=== PATIENT | female | born 1980 | race Caucasian/White ===

== ENCOUNTER → 2017-06-24 08:09 | Outpatient (CLI) | payer OTHER, SELFPAY ==
[2017-06-24 10:54] LABS: Alanine Aminotransferase 66 U/L (12-78); Albumin Level 3.9 gm/dL (3.4-5.0); Albumin/Globulin Ratio 1.1 (1.1-1.8); Alkaline Phosphatase 94 U/L (46-116); Anion Gap 15.8 mEq/L (5-15); Aspartate Amino Transferase 46 U/L (15-37); Bilirubin,Total 0.3 mg/dL (0.2-1.0); Blood Urea Nitrogen 13 mg/dL (7-18); Calcium 9.6 mg/dL (8.5-10.1); Carbon Dioxide 26 mmol/L (21.0-32.0); Chloride 104 mmol/L (98-107); Creatinine,Serum 0.94 mg/dL (0.55-1.02); Estimated Glomerular Filt Rate 67 ml/min (>60); GFR (African American) 82 ML/MIN (>60); Globulin 3.6 gm/dl (1.3-3.2); Glucose 99 mg/dL (74-106); Potassium 4.8 mmoL/L (3.5-5.1); Sodium 141 mmol/L (136-145); Total Protein,Serum 7.5 gm/dL (6.4-8.2)
[2017-06-24 11:04] LABS: Thyroid Stimulating Hormone 3.46 uIU/ml (0.358-3.740)
[2017-06-26 12:54] LABS: Prolactin 12.8 ng/mL (4.8-23.3)
== END ==
PROVIDERS: Nurse Practitioner Family; Visit Provider Physician Assistant
DX: E03.9 Hypothyroidism, unspecified (principal); G47.10 Hypersomnia, unspecified; Z13.1 Encounter for screening for diabetes mellitus
CPT/HCPCS: 36415; 80053; 83036; 84146; 84443

== ENCOUNTER → 2017-06-30 20:12 | Outpatient (CLI) | payer OTHER, SELFPAY | PROVIDERS: PCP Family Medicine; Visit Provider Nurse Practitioner Family | DX: G47.10 Hypersomnia, unspecified (principal); R06.83 Snoring; R51 Headache; R41.3 Other amnesia; E66.9 Obesity, unspecified | CPT/HCPCS: 95810 ==

== ENCOUNTER → 2018-09-08 17:05 | Outpatient (CLI) | payer OTHER, SELFPAY ==
--- NOTE | 2018-09-08 17:14 | XR_ITS ---
XR shoulder LT min 2V HISTORY: ITS.REASON: LT SHOULDER PAIN X 2 WEEKS ORDERING PHYSICIAN: ANDREW Sanchez PATIENT AGE: 38 years Comparison: None FINDINGS: No fracture or dislocation. No lytic or blastic change. There is normal mineralization. The joint spaces are well-preserved. No significant degenerative/arthritic changes. No erosive changes evident. IMPRESSION: Negative, no acute finding
== END ==
PROVIDERS: PCP Family Medicine; Visit Provider Physician Assistant
DX: M25.512 Pain in left shoulder (principal)
CPT/HCPCS: 73030

== ENCOUNTER → 2019-07-12 09:07 | Outpatient (CLI) | payer OTHER, SELFPAY ==
--- NOTE | 2019-07-12 09:53 | ECG_ITS ---
APPROVED REPORT Exam: Resting ECG HR:66 bpm ECG Measurements Heart Rate 66 AXES MI 130 P 16 QRSd 74 QRS 25 QT 410 T 50 QTc 429 <Conclusion> Normal sinus rhythm Normal ECG Electronically signed by : Diony Liang, 07/13/2019 06:33:36
[2019-07-12 10:19] LABS: Basophils % 0.5 % (0.1-2.0); Eosinophils # 0.1 K/mm3 (0.0-0.4); Eosinophils % 2.7 % (0.1-12.0); Hemoglobin 12.8 g/dL (12.2-16.2); Lymphocytes # 1.6 K/mm3 (0.7-4.5); Lymphocytes % 30.1 % (10-50); Mean Corpuscular HGB Conc 32.1 g/dL (31.8-35.4); Mean Corpuscular Hemoglobin 30.3 pg (27.0-31.2); Mean Corpuscular Volume 94.4 fl (81-99); Mean Platelet Volume 7.7 fl (7.4-10.4); Monocytes # 0.3 K/mm3 (0.1-1.0); Monocytes % 4.8 % (1.7-9.3); Neutrophils # 3.3 K/mm3 (1.8-7.8); Neutrophils % 61.9 % (37.0-80.0); Platelet Count 321 K/mm3 (142-424); Red Blood Count 4.24 M/mm3 (4.20-5.40); Red Cell Distribution Width 13.1 % (11.5-17.5); White Blood Count 5.4 K/mm3 (4.8-10.8)
[2019-07-12 10:56] LABS: Chloride 99 mmol/L (98-107)
[2019-07-12 10:57] LABS: Potassium 4.5 mmoL/L (3.5-5.1); Sodium 136 mmol/L (136-145)
[2019-07-12 10:59] LABS: Alanine Aminotransferase 18 U/L (12-78); Alkaline Phosphatase 69 U/L (38-126); Aspartate Amino Transferase 23 U/L (14-36); Bilirubin,Total 0.3 mg/dl (0.2-1.3); Blood Urea Nitrogen 15 mg/dl (7-17); Estimated Glomerular Filt Rate 70 ml/min (>60); GFR (African American) 85 ML/MIN (>60)
[2019-07-12 11:00] LABS: Albumin Level 4.6 g/dl (3.5-5.0); Albumin/Globulin Ratio 1.6 (1.1-1.8); Anion Gap 12.5 mEq/L (5-15); Calcium 10.2 mg/dl (8.4-10.2); Carbon Dioxide 29 mmol/L (22.0-30.0); Globulin 2.8 g/dL (1.3-3.2); Glucose 106 mg/dl (74-100); Total Protein,Serum 7.4 g/dl (6.3-8.2)
== END ==
PROVIDERS: PCP Family Medicine; Visit Provider Orthopaedic Surgery
DX: Z01.818 Encounter for other preprocedural examination (principal); M25.512 Pain in left shoulder
CPT/HCPCS: 36415; 80053; 85025; 93005

== ENCOUNTER → 2019-07-19 09:18 | Outpatient (CLI) | payer OTHER, SELFPAY ==
[2019-07-20 16:09] LABS: Covid-19 Nasal PCR Sendout Lex NOT DETECTED
== END ==
PROVIDERS: Visit Provider Orthopaedic Surgery
DX: Z03.818 Encounter for observation for suspected exposure to other biological agents ruled out (principal)
CPT/HCPCS: U0004

== ENCOUNTER → 2019-07-25 09:43 | Outpatient (CLI) | payer OTHER, SELFPAY ==
[2019-07-25 11:36] LABS: Coronavirus 19 IgG Antibody Negative (Negative); Coronavirus 19 IgM Antibody Negative (Negative)
== END ==
PROVIDERS: Visit Provider Orthopaedic Surgery
DX: Z03.818 Encounter for observation for suspected exposure to other biological agents ruled out (principal)
CPT/HCPCS: 36415; 86328

== ENCOUNTER 2019-07-26 10:01 | Day surgery (SDC) | payer OTHER, SELFPAY ==
--- NOTE | 2019-07-18 10:31 | SUR.PREOP ---
07/18/2019 @ 6780--PHONE CALL MADE TO PATIENT. PATIENT UNDERSTANDS THAT LAB WORK AND COVID TESTING NEEDS TO BE COMPLETED BEFORE 10 AM ON 07/19/2019. PATIENT UNDERSTANDS IF LAB WORK AND COVID-19 TESTS ARE NOT COMPLETED BY 12PM ON THAT DATE, THE SURGERY SCHEDULED WILL BE CANCELLED AND RESCHEDULED FOR ANOTHER TIME.
[2019-07-20 09:52] VITALS: BMI 31.4
--- NOTE | 2019-07-21 11:25 | SUR.PREOP ---
07/21/2019 @ 1125--PHONE CALL MADE TO PATIENT. PATIENT UNDERSTANDS THAT LAB WORK AND COVID TESTING NEEDS TO BE COMPLETED BY 10 AM ON 07/25/2019. PATIENT UNDERSTANDS IF LAB WORK AND COVID-19 TESTS ARE NOT COMPLETED BY 12PM ON THAT DATE, THE SURGERY SCHEDULED WILL BE CANCELLED AND RESCHEDULED FOR ANOTHER TIME.
[2019-07-26] VITALS (9 sets, daily range): BP systolic 102–124; BP diastolic 59–82; PULSE 82–100; RESP 12–18; TEMP 36.4–43; O2SAT 95–100
[2019-07-26 10:55] LABS: Urine Pregnancy, HCG Qual. Negative (Negative)
--- NOTE | 2019-07-26 11:31 | HMH.ANESCL ---
[facility] Anesthesia Checklist - Structural Data Admitted From: Home Planned Operative Procedure/s: shoulder arthro Consent for Planned Operative Procedure(s) Verified: Yes - Additional verifications Anesthesia Reactions: No Hx Blood Transfusions: No - Airway Assessment C-Spine Mobility Assessed: Yes TMJ Mobility Assessed: Yes Dentition: Good Dentition - Neurological Assessment Level of Consciousness: Awake, Alert, Appropriate - Anesthesia Plan Anesthesia Risk discussed: Yes Anesthesia Plan: Verified ASA Class: II Anesthesia Type: General w/block [facility] History I have reviewed the patient's past medical history: Yes (discussed BP block w pt,pt agrees to proceed) Medical History: Reports:: Anxiety, Depression, Gastroesophageal Reflux Disease(GERD) Denies:: Cancer, Diabetes Mellitus Type 1, Diabetes Mellitus Type 2, Internal Pacemaker, MRSA, Seizures *Have you ever received a pneumonia vaccine?: No *Have you received a flu vaccine this season?: Yes Other Medical History: Reports: Fibromyalgia, Thyroid Disease, Other Anesthesia experience/problems:: none Laterality Cases: Left: ACL Repair Other Surgeries: Yes: No Previous Surgery, Cholecystectomy, Colonoscopy, Other. No: Pacemaker Amputation: No Fractures: No - *Social History Educational Level: Completed College Smoking Status: Never smoker Tobacco Type: cigarettes, smokeless tobacco # Packs/Day (cigarettes): 1 #Yrs smoked (if former smoker): 1 Alcohol Intake: current Alcohol Intake Frequency:: holidays/special occasions only Substance Use Type: denies use *Occupational Status:: employed Housing: house Household Members: spouse *Travel in the last 8 weeks: None - Psychiatric History Pschychiatric History:: Reports:: Anxiety, Depression Family Hx:: Coronary Artery Disease, Hyperlipidemia, Hypertension
--- NOTE | 2019-07-26 14:57 | SUR.OPER ---
1405-family updated at this time
--- NOTE | 2019-07-26 15:34 | SUR.OPER ---
1534-family updated at this time
--- NOTE | 2019-07-26 17:19 | P.PN_ITS ---
[facility] Anesthesia Record Part I Intake, IV Amount: 2,900 Estimated blood loss (mL): 0 Urine output (mL): 400 Blood Pressure: 102/60 SaO2: 95 Pulse Rate: 100 Respiratory Rate: 12 Temperature: 97.6 F Patient is:: Awake, Stable (no co pain at this time) Stable to PACU at:: 17:10
--- NOTE | 2019-07-26 17:35 | HMH.OPNOTE ---
Date of procedure: 07/26/19 Pre-op Diagnosis:: L shoulder posterior labral tear, SLAP tear, paralabral cyst Post-op Diagnosis:: L shoulder posterior labral tear, SLAP tear, paralabral cyst, biceps tendinopathy Procedure performed:: L shoulder arthroscopy, biceps tenotomy, decompression of paralabral cyst, labral repair Surgeon:: Sona Michelle MD Wood Caulker(s):: PARVIZ Pedroza MOWER OPERATOR:: Jose Musa Anesthesia: GETA, regional (interscalene block) Estimated blood loss (mL): 10 Clinical Note:: 39-year-old [id number] female with pain in left shoulder present for over 1 year, with no known injury. Pain is localized to the left shoulder; no neck pain, no pain that radiates down the left upper extremity, no numbness or tingling. She has been seen by a PA at another facility who initiated treatment with physical therapy and a corticosteroid injection. She underwent 3 to 4 months of physical therapy, combined with ibuprofen and a steroid injection given in March 2019, but the shot has since worn off and her pain returned as significantly as ever. MRI of the left shoulder without contrast was done in [place] on October 01, 2018 and revealed a posterior labral tear, likely SLAP tear with large paralabral cyst impinging on suprascapular/spinoglenoid notches. I recommended surgical treatment given failure of 1 year of conservative therapy. My proposed plan was for L shoulder arthroscopy, decompression of paralabral cyst, labral repair, possible SLAP repair, possible biceps tenotomy vs tenodesis. I discussed the risks of surgery with the patient, including bleeding, infection, neurovascular damage, traction neuropraxia is positioned laterally, persistent pain/weakness despite surgery, and need for further surgery in the future. The patient vocalized understanding of the risks and has elected to proceed with surgery; all questions were answered. Operative findings:: labral tear: posterior from 9-11 o'clock SLAP tear at 12 o'clock, type III-IV anterior labral tear at 1-3 o'clock, possible sublabral foramen biceps tendon with intrasubstance longitudinal tearing + erythema c/w tendinopathy Anchors used: Arthrex Fibertak labral repair anchors, knotless 2.6mm x5 + 1.8mm x1 camera malfunction during case: pictures were thought have been taken but images were not captured starting midway through procedure Operative note:: The patient was identified in preoperative holding and the left shoulder signed by myself. Consent was verified with the patient and all questions answered. She was then seen by anesthesia and interscalene nerve block administered. The patient was then transported to the operating room where she was placed supine on the OR table. 2 g of Ancef were infused intravenously and general anesthesia induced, The patient was placed in the beachchair position with the head in a well-padded chavez in neutral position and all bony prominences well-padded. The left shoulder was then prepped and draped in the usual sterile fashion for shoulder arthroscopy. Timeout was performed, identifying the correct patient, correct procedure, correct site. The procedure was begun by using a marking pen to drawout anatomic landmarks for reference, in addition to the location of all desired portals. Using an 11 blade, a standard posterior viewing portal was established. 30 degree arthroscope was placed into the glenohumeral joint. The biceps tendon was seen, and while visualizing the anterior joint capsule, an anterior working portal was established using a spinal needle and an outside-in technique. Through this portal a 7mm threaded plastic working cannula was inserted, into the joint. From here a diagnostic arthroscopy was performed. A SLAP tear was immediately seen, most resembling a type III-IV. There was extension of the tear posteriorly to around 9 o'clock. There was what appeared to be a sublabral foramen anteriorly, with milder but still
--- NOTE | 2019-07-26 17:57 | PC.NURSE ---
173-detailed report given to TATA Hoffman 174-pt transported to post op via stretcher w/clayton rails up and left in care of TATA Hoffman, vss, pt stable
--- NOTE | 2019-07-27 08:54 | HMH.ANESII ---
[facility] Anesthesia Record Part II Discharge Time: 17:40 Destination: [facility] PACU nurse assessment reviewed?: Yes Patient Condition:: Good Anesthesia Complications:: None Swallowing reflex intact?: Yes Cyanosis?: No Blood Pressure: 110/59 Pulse Rate: 86 Temperature: 97.8 F Mental Status: Alert & Oriented Pain level:: 5 Nausea and/or vomitting:: None Intake, IV Amount: 2,900
[2019-07-27 08:55] VITALS: BP 110/59; PULSE 86; TEMP 36.6
== END 2019-07-26 18:11 | disposition home or self-care (01) ==
LOC: OR 10:02
PROVIDERS: PCP Family Medicine; Visit Provider Orthopaedic Surgery
PROC: (CPT 29805; principal; 2019-07-26 11:30)
DX: S43.432A Superior glenoid labrum lesion of left shoulder, initial encounter (principal); M75.22 Bicipital tendinitis, left shoulder
CPT/HCPCS: 29828; 29807; 81025; C1713; J2405

== ENCOUNTER → 2019-10-28 08:51 | Outpatient (CLI) | payer OTHER, SELFPAY ==
--- NOTE | 2019-10-28 08:55 | XR_ITS ---
PROCEDURE: XR SHOULDER LT MIN 2V CLINICAL INDICATION: sp LT shoulder surgery, sx 07/26/2019 Follow-up surgery COMPARISON: CR Shoulder L from 09/08/2018 FINDINGS: No fracture or dislocation. No lytic or blastic change. There is normal mineralization. There are multiple transverse lucencies within the glenoid which were not readily apparent on the previous exam. This may be postsurgical. There is also a small metallic density along the superior aspect of the glenoid which was not present previously. IMPRESSION: 1. Postsurgical changes of the glenoid. Dictated by: Eyal Mcnally MD 10/28/2019 11:26 Eyal Mcnally MD in [place] 10/28/2019 11:26
== END ==
PROVIDERS: PCP Family Medicine; Visit Provider Orthopaedic Surgery
DX: Z09 Encounter for follow-up examination after completed treatment for conditions other than malignant neoplasm (principal); S43.432D Superior glenoid labrum lesion of left shoulder, subsequent encounter; M67.912 Unspecified disorder of synovium and tendon, left shoulder
CPT/HCPCS: 73030

== ENCOUNTER → 2019-11-24 14:57 | Outpatient (CLI) | payer OTHER, SELFPAY ==
[2019-11-24 18:08] LABS: T4 (Thyroxine) 8.9 ug/dl (5.53-11.0)
== END ==
PROVIDERS: Visit Provider Family Medicine
DX: E03.9 Hypothyroidism, unspecified (principal)
CPT/HCPCS: 84436

== ENCOUNTER 2019-11-30 15:00 | Outpatient (RCR) | payer OTHER, SELFPAY ==
--- NOTE | 2019-08-10 16:01 | HMH.OTOPEV ---
OT Inpatient Evaluation Rehab OT Outpatient Eval Start: 08/10/19 15:44 Freq: Status: Active Protocol: Document 08/10/19 15:45 THOMAS (Rec: 08/10/19 16:01 THOMAS [id number]) Electronically Signed By Mena Lin OT 08/10/19 15:45 Outpatient Therapy Subjective History Subjective History Pt is a 39 year old female who reports to therapy for initial evaluation to left shoulder. Pt began having pain in her left shoulder ~ 1 year ago. She does not recall a specific injury causing her pain to begin. Pt ended up requiring surgery after injections and physical therapy failed to improve her functional use/chronic pain. Pt is s/p shoulder posterior labral tear, SLAP tear, paralabral cyst decompression, and biceps tendinopathy on . Pt does demonstrate with decreased PROM due to only being ~2 weeks out from surgery. Pt will continue to be seen twice a week in order to address all deficits. Chief Complaint Pain,Stiff,Weakness Symptom Type Ache,Throb,Sharp Symptoms Relieved By Nothing Symptoms Aggravated By Prone,Supine,Sitting,Standing, Bending/Stooping,Physical Activity,Lifting Prior Functional Limitations None Current Functional Limitations Reaching,Lifting,Housework, Dressing,Driving,Sleeping, Recreation Activity Symptom Description Constant but Variable Level of pain today (0-10) 0 Pain scale - at its best (0-10) 0 Pain scale - at its worst (0-10) 8 Shoulder/Elbow Eval Shoulder Objective Measurements Shoulder ROM Left Shoulder Abduction Passive Range of 90 degrees Motion (degrees) Shoulder Flexion Passive Range of Motion 90 degrees (degrees) Shoulder External Rotation Passive Range 30 degrees of Motion (degrees) Shoulder Internal Rotation Passive Range 60 degrees of Motion (degrees) pain with active ROM shoulder exam left standard pain with passive ROM shoulder exam left standard decreased ROM shoulder exam standard left Shoulder MMT Shoulder Abduction Strength Grade
--- NOTE | 2019-09-12 15:58 | HMH.RHREAS ---
Rehab Reassessment Rehab OP Re-assessment Start: 09/12/19 15:09 Freq: Status: Active Protocol: Document 09/12/19 15:10 THOMAS (Rec: 09/12/19 15:58 [email or web address] [id number]) Electronically Signed By Mena Lin OT 09/12/19 15:10 Rehab Re-assessment Subjective Subjective I am having more pain today. Objective Objective Notes Pt continues to be seen twice a week in order to address left shoulder deficits. Each session pt engages in left shoulder AROM/AAROM exercises. Pt also received passive manual stretching to left shoulder in supine. Pt also receives modalities in order to decrease pain in left shoulder. Assessment Progress Assessment Progressing as Expected Assessment Notes Pt has demonstrated improved AROM and PROM since origninal initial evaluation. Pt claims she is ~50% better since beginning therapy. Pt continues to have an 8/10 pain in the shoulder at worse. Current AROM and MMT L shoulder Flex: 110 degrees; 3 Abd: 95 degrees; 3- ER: 65 degrees; 3- IR: 55 degrees; 3- Patient goals met Pt has reached the following short term goals Pt can tolerate L shoulder exercises for 30 minutes prior to rest. 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 Frequency of Therapy 2x's a week Duration of therapy 8 more weeks Time and Billing Re-Eval Time 15 Re-Eval Billing Units 1 PHYSICIAN CERTIFICATION: I certify the specified therapy services for Shelbylaquita Arriaga are required, authorized, and reviewed every 30 days.
--- NOTE | 2019-10-10 13:44 | HMH.RHREAS ---
Rehab Reassessment Rehab OP Re-assessment Start: 09/12/19 15:09 Freq: Status: Active Protocol: Document 10/10/19 13:12 THOMAS (Rec: 10/10/19 13:43 THOMAS [id number]) Electronically Signed By Mena Lin OT 10/10/19 13:12 Rehab Re-assessment Subjective Subjective I think I go back to the doctor at the end of this month. Objective Objective Notes Pt continues to be seen twice a week in order to address left shoulder deficits. Each session pt engages in left shoulder AROM/AAROM exercises. Pt also received passive manual stretching to left shoulder in supine. Pt also receives modalities in order to decrease pain in left shoulder. Assessment Progress Assessment Progressing as Expected Assessment Notes Pt's AROM and PROM has improved since last reassessment. Pt reports she is ~80% better since beginning therapy. Pt continues to have an 5/10 pain in the shoulder at worse. Current AROM and MMT L shoulder Flex: 150 degrees; 4 Abd: 120 degrees; 4- ER: 72 degrees; 4- IR: 65 degrees; 4- Patient goals met Pt has reached all short term goals written on initial evaluation Goals Not Met alf goals Revised Goals Continue progressing towards all terminal superintendent goals written on initial evaluation. Plan Plan Continue with OT plan of care at this time. Frequency of Therapy 2x's a week Duration of therapy 6 more weeks Time and Billing Re-Eval Time 15 Re-Eval Billing Units 1 PHYSICIAN CERTIFICATION: I certify the specified therapy services for Shelby Ramya Arriaga are required, authorized, and reviewed every 30 days.
--- NOTE | 2019-11-09 16:11 | HMH.RHREAS ---
Rehab Reassessment Rehab OP Re-assessment Start: 09/12/19 15:09 Freq: Status: Active Protocol: Document 11/09/19 15:19 THOMAS (Rec: 11/09/19 16:11 THOMSA [id number]) Electronically Signed By Mena Lin OT 11/09/19 15:19 Rehab Re-assessment Subjective Subjective I think I go back to the doctor at the end of this month. Objective Objective Notes Pt continues to be seen twice a week in order to address left shoulder strengthening and AROM. Each session pt engages in left shoulder AROM/ AAROM exercises. Pt also received passive manual stretching to left shoulder in supine. Pt does receive modalities in order to decrease pain in left shoulder . Assessment Progress Assessment Progressing as Expected Assessment Notes Pt's AROM and PROM has improved since last reassessment. Pt reports she is ~90% better since beginning therapy. Pt continues to have an 4/10 pain in the shoulder at worse. 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 Frequency of Therapy 2x's a week Duration of therapy 6 more weeks Time and Billing Re-Eval Time 15 Re-Eval Billing Units 1
== END 2019-11-30 15:05 | disposition home or self-care (01) ==
LOC: OT 15:00
PROVIDERS: PCP Family Medicine; Visit Provider Orthopaedic Surgery
DX: S43.432D Superior glenoid labrum lesion of left shoulder, subsequent encounter (principal)
CPT/HCPCS: 97014; 97035; 97110; 97140; 97164; 97166; 97530; G0283

== ENCOUNTER → 2019-12-19 11:59 | Outpatient (CLI) | payer OTHER, SELFPAY ==
[2019-12-19 13:28] LABS: Basophils % 0.6 % (0.1-2.0); Eosinophils # 0.2 K/mm3 (0.0-0.4); Eosinophils % 2.2 % (0.1-12.0); Hematocrit 42.1 % (37.0-47.0); Hemoglobin 13.9 g/dL (12.2-16.2); Lymphocytes % 27.5 % (10-50); Mean Corpuscular HGB Conc 33.1 g/dL (31.8-35.4); Mean Corpuscular Hemoglobin 31.8 pg (27.0-31.2); Mean Corpuscular Volume 96.3 fl (81-99); Mean Platelet Volume 8.1 fl (7.4-10.4); Monocytes # 0.3 K/mm3 (0.1-1.0); Monocytes % 4.5 % (1.7-9.3); Neutrophils # 4.7 K/mm3 (1.8-7.8); Neutrophils % 65.1 % (37.0-80.0); Platelet Count 363 K/mm3 (142-424); Red Blood Count 4.37 M/mm3 (4.20-5.40); Red Cell Distribution Width 13.4 % (11.5-17.5); White Blood Count 7.3 K/mm3 (4.8-10.8)
[2019-12-19 15:47] LABS: Strep Scrn Group A (Rapid) Negative (Negative)
[2019-12-20 13:44] LABS: Covid-19 Nasal PCR Sendout Lex Not Detected
== END ==
PROVIDERS: PCP Family Medicine; Visit Provider Nurse Practitioner
DX: Z03.818 Encounter for observation for suspected exposure to other biological agents ruled out (principal)
CPT/HCPCS: 36415; 85025; 87430; U0004

== ENCOUNTER → 2020-02-15 10:08 | Outpatient (CLI) | payer OTHER, SELFPAY ==
[2020-02-15 11:54] LABS: Thyroid Stimulating Hormone 1.76 uIU/mL (0.465-4.68)
== END ==
PROVIDERS: Visit Provider Family Medicine
DX: E03.9 Hypothyroidism, unspecified (principal)
CPT/HCPCS: 36415; 84443

== ENCOUNTER 2020-03-15 15:35 | Emergency (ER) | payer OTHER, SELFPAY ==
[2020-03-15 15:36] VITALS: BP 153/78; BP 153/98; PULSE 97; RESP 16; RESP 18; TEMP 37; O2SAT 95; O2SAT 98; BMI 33.6
--- NOTE | 2020-03-15 15:40 | ECG_ITS ---
APPROVED REPORT Exam: Resting ECG HR:83 bpm ECG Measurements Heart Rate 83 AXES VA 126 P 25 QRSd 76 QRS 6 QT 382 T 37 QTc 448 Conclusion Normal sinus rhythm Minimal voltage criteria for LVH, may be normal variant Borderline ECG Electronically signed by : Diony Liang, 03/16/2020 06:00:35
--- NOTE | 2020-03-15 15:44 | XR_ITS ---
PROCEDURE: XR CHEST PORTABLE CLINICAL HISTORY: CHEST PAIN COMPARISON: CR CXR2V XR chest 2V from 07/05/2017 FINDINGS: The cardiomediastinal silhouette and pulmonary vascularity are within normal limits. The lungs are clear without infiltrates, suspicious nodules, or pleural effusions. No acute bony abnormalities. IMPRESSION: No acute findings. Dictated by: Eyal Mcnally MD 03/15/2020 16:19 Eyal Mcnally MD in [place] 03/15/2020 16:19
--- NOTE | 2020-03-15 15:45 | HMH.EDGENADL ---
ED Disposition Clinical Impression: Atypical chest pain Disposition: Home, Self-Care Condition on Discharge: Good Instructions: DI for Atypical Chest Pain Additional Instructions: Additional instructions for CHEST PAIN: See your physician as soon as possible for further evaluation. Return immediately if worsening chest pain, vomiting, shortness of breath, fever, coughing of blood. Referrals: Shakir Gupta MD [Primary Care Provider] - - Critical Care Critical Care Time: No Attestation: On , the high probability of a clinically significant, sudden or life threatening deterioration of the following system(s) required my full and direct attention, intervention and personal management. The time I documented below is in addition to time spent performing reported procedures but includes the following listed in this critical care notation. Medical Decision Making - Medical Records Medical records reviewed: Yes: I reviewed the patient's medical records. MR Comment: No prior cardiac work-up found - Shahram Inquiry Pt receiving controlled substance: No Vital Signs: 03/15/20 15:36 03/15/20 16:36 03/15/20 17:06 Temperature 98.6 F Temperature Source Oral Pulse Rate [Radial] 97 H 87 84 Respiratory Rate 18 18 18 Blood Pressure [Right Arm] 153/98 H 125/81 123/74 Blood Pressure Mean [Right Arm] 116 95 90 Blood Pressure Position [Right Arm] Sitting 02 Sat by Pulse Oximetry 95 98 100 Oxygen Delivery Method Room Air Room Air Room Air 03/15/20 17:36 03/15/20 18:06 Temperature Temperature Source Pulse Rate [Radial] 83 88 Respiratory Rate 18 18 Blood Pressure [Right Arm] 122/81 116/77 Blood Pressure Mean [Right Arm] 94 90 Blood Pressure Position [Right Arm] 02 Sat by Pulse Oximetry 100 99 Oxygen Delivery Method Room Air Room Air - Lab Data Lab results reviewed: Yes: I reviewed the patient's lab results. Lab Results 03/15/20 15:38: WBC 9.7, RBC 4.42, Hgb 14.0, Hct 41.5, MCV 93.9, MCH 31.8 H, MCHC 33.9, RDW 13.5, Plt Count 351, MPV 7.6, Neut % (Auto) 69.0, Lymph % (Auto) 24.3, Loup % (Auto) 3.9, Eos % (Auto) 2.3, Baso % (Auto) 0.6, Neut # (Auto) 6.7, Lymph # (Auto) 2.3, Loup # (Auto) 0.4, Eos # (Auto) 0.2, Baso # (Auto) 0.1 03/15/20 15:38: Sodium 137, Potassium 3.9, Chloride 101, Carbon Dioxide 27, Anion Gap 12.9, BUN 12, Creatinine 1.10 H, Estimated Creat Clear 94, Estimated GFR 56 L, Est GFR ( Amer) 67, Glucose 103 H, Calcium 9.7, Troponin I < 0.01 03/15/20 15:38: Serum HCG, Qual Negative 03/15/20 15:38: D-Dimer 0.61 H 03/15/20 17:48: Troponin I < 0.01 Result diagrams: 03/15/20 15:38 03/15/20 15:38 Orders (Tests/Meds): ED MEDICATIONS Discontinued Medications Generic Name Dose Route Start Last Admin Trade Name Freq PRN Reason Stop Dose Admin Acetaminophen 1,000 mg 03/15/20 17:49 03/15/20 17:50 Acetaminophen 500mg Tab PO 03/15/20 17:50 1,000 mg ONCE ONE Administration Iopamidol 70 ml 03/15/20 17:08 03/15/20 17:10 Iopamidol-370 (76%);100ml Bottle IV 03/15/20 17:09 70 ml ONCE ONE Administration Sodium Chloride 50 ml 03/15/20 17:08 03/15/20 17:10 0.9 % Sodium Chloride 50 Ml Vial IV 03/15/20 17:09 50 ml ONCE ONE Administration Sodium Chloride 10 ml 03/15/20 17:08 03/15/20 17:10 Sodium Chloride 0.9% 10ml Syr (Rad Only) IV 03/15/20 17:09 10 ml ONCE ONE Administration ORDERS Category Date Time Status Troponin I Q3H Lab 03/15/20 21:45 Ordered - Radiology Data #1 Image(s): Chest Image Reviewed: Yes I reviewed the patient's radiology image Preliminary Findings: Normal/NAD - CT Data CT Scan: Chest (CTA) Time Received: 17:[address] Reviewed: Yes: I have viewed the radiologist's interpretation Findings Narrative: PROCEDURE: CT ANGIO CHEST CLINCIAL INDICATION: CP, elev d-dimer COMPARISON: No exams were available for comparison TECHNIQUE: IV Contrast: 70ML Isovue 370 Axial images obtained with sagit
[2020-03-15 15:50] LABS: Basophils # 0.1 K/mm3 (0-0.2); Basophils % 0.6 % (0.1-2.0); Eosinophils # 0.2 K/mm3 (0.0-0.4); Eosinophils % 2.3 % (0.1-12.0); Hematocrit 41.5 % (37.0-47.0); Lymphocytes # 2.3 K/mm3 (0.7-4.5); Lymphocytes % 24.3 % (10-50); Mean Corpuscular HGB Conc 33.9 g/dL (31.8-35.4); Mean Corpuscular Hemoglobin 31.8 pg (27.0-31.2); Mean Corpuscular Volume 93.9 fl (81-99); Mean Platelet Volume 7.6 fl (7.4-10.4); Monocytes # 0.4 K/mm3 (0.1-1.0); Monocytes % 3.9 % (1.7-9.3); Neutrophils # 6.7 K/mm3 (1.8-7.8); Platelet Count 351 K/mm3 (142-424); Red Blood Count 4.42 M/mm3 (4.20-5.40); Red Cell Distribution Width 13.5 % (11.5-17.5); White Blood Count 9.7 K/mm3 (4.8-10.8)
[2020-03-15 15:51] LABS: Chloride 101 mmol/L (98-107); Potassium 3.9 mmoL/L (3.5-5.1); Sodium 137 mmol/L (136-145)
[2020-03-15 15:54] LABS: Anion Gap 12.9 mEq/L (5-15); Blood Urea Nitrogen 12 mg/dl (7-17); Calcium 9.7 mg/dl (8.4-10.2); Carbon Dioxide 27 mmol/L (22.0-30.0); Creatinine Clearance Estimated 94 mL/min (50-200); Estimated Glomerular Filt Rate 56 ml/min (>60); GFR (African American) 67 ML/MIN (>60); Glucose 103 mg/dl (74-100)
[2020-03-15 16:04] LABS: HCG Qualitative, Serum Negative (Negative)
[2020-03-15 16:09] LABS: Troponin I < 0.01 ng/ml (0.00-0.034)
[2020-03-15 16:21] LABS: D-Dimer 0.61 ug/mL (0.0-0.5)
[2020-03-15 16:36] VITALS: BP 125/81; PULSE 87; RESP 18; O2SAT 98
--- NOTE | 2020-03-15 16:40 | CT_ITS ---
PROCEDURE: CT ANGIO CHEST CLINCIAL INDICATION: CP, elev d-dimer COMPARISON: No exams were available for comparison TECHNIQUE: IV Contrast: 70ML Isovue 370 Axial images obtained with sagittal and coronal reformats. All CT scans at the facility use one or more dose reduction, viz: automated exposure control, ma/kV adjustment per patient size (including targeted exams where dose is matched to indication, i.e. head), or iterative reconstruction technique. FINDINGS: HEART AND MEDIASTINAL STRUCTURES: No evidence of aortic aneurysm or dissection. No evidence of pulmonary embolus. LUNGS AND PLEURAL SPACES: Unremarkable. BONY STRUCTURES: No acute bony abnormalities apparent. UPPER ABDOMEN: Unremarkable. ADDITIONAL FINDINGS: No other significant abnormalities. IMPRESSION: No acute finding. No evidence of pulmonary embolus Dictated by: Eyal Mcnally MD 03/15/2020 17:29 Eyal Mcnally MD in [place] 03/15/2020 17:29
--- NOTE | 2020-03-15 16:55 | PC.NURSE ---
TO CT PER WHEELCHAIR
[2020-03-15 17:06] VITALS: BP 123/74; PULSE 84; RESP 18; O2SAT 100
[2020-03-15 17:36] VITALS: BP 122/81; PULSE 83; RESP 18; O2SAT 100
[2020-03-15 18:06] VITALS: BP 116/77; PULSE 88; RESP 18; O2SAT 99
[2020-03-15 18:17] LABS: Troponin I < 0.01 ng/ml (0.00-0.034)
[2020-03-15 18:33] VITALS: BP 126/74; PULSE 80; RESP 15; TEMP 37; O2SAT 99
== END 2020-03-15 18:36 | disposition home or self-care (01) ==
PROVIDERS: Emergency Provider Emergency Medicine; PCP Family Medicine
DX: R07.89 Other chest pain (principal); R03.0 Elevated blood-pressure reading, without diagnosis of hypertension; R51.9 Headache, unspecified; F41.8 Other specified anxiety disorders; K21.9 Gastro-esophageal reflux disease without esophagitis; E03.9 Hypothyroidism, unspecified; M79.7 Fibromyalgia; Z79.899 Other long term (current) drug therapy; Z88.8 Allergy status to other drugs, medicaments and biological substances
CPT/HCPCS: 71045; 71275; 80048; 84484; 84703; 85025; 85378; 93005; 99284; Q9967

== ENCOUNTER → 2020-05-28 15:44 | Outpatient (CLI) | payer OTHER, SELFPAY ==
[2020-05-28 16:25] LABS: Basophils % 0.6 % (0.1-2.0); Eosinophils # 0.2 K/mm3 (0.0-0.4); Eosinophils % 2.7 % (0.1-12.0); Hematocrit 38.1 % (37.0-47.0); Hemoglobin 12.7 g/dL (12.2-16.2); Lymphocytes # 2.1 K/mm3 (0.7-4.5); Lymphocytes % 30.6 % (10-50); Mean Corpuscular HGB Conc 33.4 g/dL (31.8-35.4); Mean Corpuscular Hemoglobin 31.4 pg (27.0-31.2); Mean Corpuscular Volume 94.2 fl (81-99); Mean Platelet Volume 7.8 fl (7.4-10.4); Monocytes # 0.3 K/mm3 (0.1-1.0); Monocytes % 4.2 % (1.7-9.3); Neutrophils # 4.2 K/mm3 (1.8-7.8); Neutrophils % 61.9 % (37.0-80.0); Platelet Count 300 K/mm3 (142-424); Red Blood Count 4.05 M/mm3 (4.20-5.40); Red Cell Distribution Width 13.5 % (11.5-17.5); White Blood Count 6.8 K/mm3 (4.8-10.8)
== END ==
PROVIDERS: PCP Nurse Practitioner; Visit Provider Nurse Practitioner
DX: Z20.822 Contact with and (suspected) exposure to COVID-19 (principal); R71.8 Other abnormality of red blood cells
CPT/HCPCS: 36415; 85025; U0003

== ENCOUNTER → 2020-06-12 16:22 | Outpatient (CLI) | payer OTHER, SELFPAY ==
--- NOTE | 2020-06-12 16:28 | XR_ITS ---
PROCEDURE: XR CHEST PORTABLE CLINICAL HISTORY: COVID OUTPATIENT COMPARISON: CR CXR2V XR chest 2V from 07/05/[address] ANGIO CHEST from 03/15/2020 CR XR CHEST PORTABLE from 03/15/2020 FINDINGS: The cardiomediastinal silhouette and pulmonary vascularity are within normal limits. The lungs are clear without infiltrates, suspicious nodules, or pleural effusions. No acute bony abnormalities. IMPRESSION: No acute findings. Dictated by: Eyal Mcnally MD 06/12/2020 17:09 Eyal Mcnally MD in [place] 06/12/2020 17:09
[2020-06-12 17:37] LABS: Basophils # 0.1 K/mm3 (0-0.2); Basophils % 0.5 % (0.1-2.0); Eosinophils # 0.3 K/mm3 (0.0-0.4); Eosinophils % 2.6 % (0.1-12.0); Hematocrit 40.4 % (37.0-47.0); Hemoglobin 13.4 g/dL (12.2-16.2); Lymphocytes # 2.5 K/mm3 (0.7-4.5); Lymphocytes % 24.3 % (10-50); Mean Corpuscular HGB Conc 33.3 g/dL (31.8-35.4); Mean Corpuscular Hemoglobin 30.9 pg (27.0-31.2); Mean Corpuscular Volume 92.7 fl (81-99); Mean Platelet Volume 7.8 fl (7.4-10.4); Monocytes # 0.4 K/mm3 (0.1-1.0); Monocytes % 3.4 % (1.7-9.3); Neutrophils # 7.1 K/mm3 (1.8-7.8); Neutrophils % 69.1 % (37.0-80.0); Platelet Count 261 K/mm3 (142-424); Red Blood Count 4.35 M/mm3 (4.20-5.40); Red Cell Distribution Width 13.6 % (11.5-17.5); White Blood Count 10.2 K/mm3 (4.8-10.8)
== END ==
PROVIDERS: PCP Nurse Practitioner; Visit Provider Nurse Practitioner
DX: Z20.822 Contact with and (suspected) exposure to COVID-19 (principal)
CPT/HCPCS: 36415; 71045; 85025; U0003

== ENCOUNTER → 2020-07-16 15:47 | Outpatient (CLI) | payer OTHER, SELFPAY ==
--- NOTE | 2020-07-16 15:47 | MR_ITS ---
PROCEDURE: MR HEAD/BRAIN WO CON CLINICAL INDICATION: daily headaches, new onset COMPARISON: No exams were available for comparison TECHNIQUE: Routine multiplanar multi echo sequences are performed without gadolinium enhancement. FINDINGS: No midline shift, mass effect, intracranial hemorrhage, or hydrocephalus is evident. The cerebellopontine angles, cerebellum, midbrain, and brainstem have an unremarkable appearance. The pituitary, optic chiasm, corpus callosum, and craniocervical junction are unremarkable. Unremarkable white matter signal intensity. No sinus air-fluid level. No mastoid effusion. IMPRESSION: Negative MRI of the brain without contrast. No acute finding Dictated by: Eyal Mcnally MD 07/17/2020 09:31 Eyal Mcnally MD in [place] 07/17/2020 09:31
== END ==
PROVIDERS: PCP Physician Assistant; Visit Provider Specialist
DX: G44.1 Vascular headache, not elsewhere classified (principal)
CPT/HCPCS: 70551

== ENCOUNTER → 2020-07-24 11:03 | Outpatient (CLI) | payer OTHER, SELFPAY | PROVIDERS: PCP Family Medicine; Visit Provider Specialist | DX: G47.33 Obstructive sleep apnea (adult) (pediatric) (principal); Z99.89 Dependence on other enabling machines and devices | CPT/HCPCS: 94762 ==

== ENCOUNTER → 2020-12-24 14:06 | Outpatient (CLI) | payer OTHER, SELFPAY | PROVIDERS: Visit Provider Internal Medicine Adolescent Medicine | DX: Z20.822 Contact with and (suspected) exposure to COVID-19 (principal) | CPT/HCPCS: C9803; U0003; U0005 ==

== ENCOUNTER → 2021-07-11 08:30 | Outpatient (CLI) | payer OTHER, SELFPAY ==
[2021-07-11 10:47] LABS: T4 (Thyroxine) 9.3 ug/dl (5.53-11.0)
[2021-07-11 11:01] LABS: Thyroid Stimulating Hormone 1.34 uIU/mL (0.465-4.68)
[2021-07-12 09:43] LABS: Triiodothyronine (T3) Total 113 ng/dL (71-180)
== END ==
PROVIDERS: Visit Provider Internal Medicine Adolescent Medicine
DX: E03.9 Hypothyroidism, unspecified (principal)
CPT/HCPCS: 36415; 84436; 84443; 84480

== ENCOUNTER → 2022-03-12 16:20 | Outpatient (CLI) | payer OTHER, SELFPAY ==
--- NOTE | 2022-03-12 16:23 | MR_ITS ---
PROCEDURE INFORMATION: Exam: MR Left Lower Extremity Joint Without Contrast, Knee Exam date and time: 03/12/2022 4:47 PM Age: 41 years old Clinical indication: Patient HX: Left medial knee pain. PT stated that knee coco. HX of acl repair to left knee; Additional info: Left anterior knee pain TECHNIQUE: Imaging protocol: Magnetic resonance imaging of the Left lower extremity joint without contrast. Exam focused on the knee. COMPARISON: No relevant prior studies available. FINDINGS: Bones and cartilage: Patella Soniya. Mild edema is seen within the superolateral aspect of Hoffa's fat, consistent with patellar tendon-lateral femoral condyle friction syndrome. Mild lateral subluxation of the patella. Heterogeneous signal intensity of the patellar cartilage, with minimal subchondral edema. Joint spaces: Small patellofemoral joint effusion. Bursae: Small amount of fluid within the deep infrapatellar bursa. A neck of a Luu cyst is visualized. Medial meniscus: Myxoid degeneration of the posterior horn of the medial meniscus, without a definitive tear extending to an articulating surface. Lateral meniscus: Heterogeneous signal intensity of the anterior root of the lateral meniscus, likely contributed by volume averaging. Meniscal tear cannot be excluded. Anterior cruciate ligament: Postoperative changes are identified consistent with ACL reconstructive surgery. The ACL graft is intact. A few small cystic collections of fluid are identified adjacent distal to the distal femoral tunnel, the largest measuring 1.1 x 0.4 cm. Mild increased signal intensity is also noted within the tibial tunnel. Posterior cruciate ligament: No visualized tear. Medial capsule and supporting structures: Unremarkable. No tear. Lateral capsule and supporting structures: A small amount of fluid is seen adjacent to the popliteus tendon, without visualized tear. No visualized tear of the lateral collateral ligament. Extensor mechanism of knee: Tendinosis is visualized of the distal quadriceps tendon and proximal patellar tendon. Muscles: No visualized acute abnormality. Soft tissues: Mild soft tissue swelling anteriorly. A small focus of magnetic susceptibility is seen within Hoffa's fat, which is likely postoperative. IMPRESSION: 1. Postoperative changes are identified, with ACL reconstructive surgery. The ACL graft is intact. A few small cystic collections of fluid are identified adjacent distal to the distal femoral tunnel. Mild increased signal intensity is also noted within the tibial tunnel. 2. Patella Biggers. Mild edema is seen within the superolateral aspect of Hoffa's fat, consistent with patellar tendon-lateral femoral condyle friction syndrome. 3. Mild soft tissue swelling anteriorly. 4. Small patellofemoral joint effusion. 5. Mild lateral subluxation of the patella. Heterogeneous signal intensity of the patellar cartilage, with minimal subchondral edema. 6. Additional findings described above. COMMENTS: According to the technologist, although there is a discrepancy in labeling as to side, this is a left knee.
== END ==
PROVIDERS: PCP Internal Medicine Adolescent Medicine; Visit Provider Internal Medicine Adolescent Medicine
DX: M25.562 Pain in left knee (principal); M25.362 Other instability, left knee
CPT/HCPCS: 73721

== ENCOUNTER → 2022-06-05 07:39 | Outpatient (CLI) | payer OTHER, SELFPAY ==
[2022-06-05 08:15] LABS: Basophils # 0.1 K/mm3 (0-0.2); Basophils % 0.9 % (0.1-2.0); Eosinophils # 0.2 K/mm3 (0.0-0.4); Eosinophils % 2.9 % (0.1-12.0); Hemoglobin 13.5 g/dL (12.2-16.2); Lymphocytes # 1.5 K/mm3 (0.7-4.5); Lymphocytes % 18.5 % (10-50); Mean Corpuscular HGB Conc 32.2 g/dL (31.8-35.4); Mean Corpuscular Hemoglobin 30.3 pg (27.0-31.2); Mean Platelet Volume 8.2 fl (7.4-10.4); Monocytes # 0.3 K/mm3 (0.1-1.0); Monocytes % 3.7 % (1.7-9.3); Neutrophils # 5.9 K/mm3 (1.8-7.8); Neutrophils % 74.1 % (37.0-80.0); Platelet Count 349 K/mm3 (142-424); Red Blood Count 4.47 M/mm3 (4.20-5.40); Red Cell Distribution Width 13.7 % (11.5-17.5); White Blood Count 7.9 K/mm3 (4.8-10.8)
[2022-06-05 09:20] LABS: Chloride 105 mmol/L (98-107); Potassium 4.6 mmoL/L (3.5-5.1); Sodium 137 mmol/L (136-145)
[2022-06-05 09:22] LABS: Alanine Aminotransferase 19 U/L (12-78); Aspartate Amino Transferase 20 U/L (14-36); Blood Urea Nitrogen 16 mg/dl (7-17); Estimated Glomerular Filt Rate 92 ml/min (>60); GFR (African American) 112 ML/MIN (>60)
[2022-06-05 09:23] LABS: Albumin Level 4.2 g/dl (3.5-5.0); Albumin/Globulin Ratio 1.8 (1.1-1.8); Alkaline Phosphatase 83 U/L (38-126); Anion Gap 12.6 mEq/L (5-15); Bilirubin,Total 0.3 mg/dl (0.2-1.3); Calcium 9.3 mg/dl (8.4-10.2); Carbon Dioxide 24 mmol/L (22.0-30.0); Chol/HDL Ratio 5.8 (1-3.5); Cholesterol 210 mg/dl (140-200); Globulin 2.4 g/dL (1.3-3.2); Glucose 103 mg/dl (74-100); HDL Cholesterol 36 mg/dl (40-60); Total Protein,Serum 6.6 g/dl (6.3-8.2); Triglycerides 184 mg/dl (30-150); VLDL Cholesterol 37 mg/dL (0-40)
[2022-06-05 09:36] LABS: Direct LDL Cholesterol 146.51 mg/dL (100-129)
[2022-06-05 09:41] LABS: T4 (Thyroxine) 7.8 ug/dl (5.53-11.0)
[2022-06-05 09:54] LABS: Thyroid Stimulating Hormone 0.02 uIU/mL (0.465-4.68)
[2022-06-05 10:28] LABS: Triiodothryronine (T3) Uptake 26 % (23.5-40.5)
[2022-06-05 10:29] LABS: 25-OH Vitamin D, Total 40.1 ng/mL (30-100)
[2022-06-05 11:21] LABS: Vitamin B12 500 pg/mL (239-931)
[2022-06-06 07:36] LABS: Hemoglobin A1C 7.7 % (4.0-6.0)
[2022-06-06 14:12] LABS: Anti-Centromere B Antibodies <0.2 AI (0.0-0.9); Anti-DNA (DS) Ab Qn <1 IU/mL (0-9); Anti-Jo-1 <0.2 AI (0.0-0.9); Anti-Smith Antibody <0.2 AI (0.0-0.9); Antichromatin Antibodies <0.2 AI (0.0-0.9); Antiscleroderma-70 Antibodies <0.2 AI (0.0-0.9); RNP Antibodies <0.2 AI (0.0-0.9); Sjogren's Anti-SS-A <0.2 AI (0.0-0.9); Sjogren's Anti-SS-B <0.2 AI (0.0-0.9)
== END ==
PROVIDERS: PCP Internal Medicine Adolescent Medicine; Visit Provider Internal Medicine Adolescent Medicine
DX: G43.709 Chronic migraine without aura, not intractable, without status migrainosus (principal); E03.9 Hypothyroidism, unspecified; E78.5 Hyperlipidemia, unspecified; E55.9 Vitamin D deficiency, unspecified; M12.9 Arthropathy, unspecified; Z68.39 Body mass index [BMI] 39.0-39.9, adult; E66.9 Obesity, unspecified; Z83.3 Family history of diabetes mellitus
CPT/HCPCS: 36415; 80053; 80061; 82306; 82607; 83036; 84436; 84443; 84479; 85025; 86225; 86235

== ENCOUNTER → 2022-08-20 08:10 | Outpatient (CLI) | payer OTHER, SELFPAY ==
[2022-08-20 09:39] LABS: Hemoglobin A1C 4.9 % (4.0-6.0)
[2022-08-20 09:58] LABS: Alanine Aminotransferase 26 U/L (12-78); Albumin Level 4.2 g/dl (3.5-5.0); Albumin/Globulin Ratio 1.7 (1.1-1.8); Alkaline Phosphatase 68 U/L (38-126); Anion Gap 17.5 mEq/L (5-15); Aspartate Amino Transferase 27 U/L (14-36); Bilirubin,Total 0.2 mg/dl (0.2-1.3); Blood Urea Nitrogen 9 mg/dl (7-17); Calcium 9.5 mg/dl (8.4-10.2); Carbon Dioxide 25 mmol/L (22.0-30.0); Chloride 102 mmol/L (98-107); Estimated Glomerular Filt Rate 92 ml/min (>60); GFR (African American) 112 ML/MIN (>60); Globulin 2.5 g/dL (1.3-3.2); Glucose 102 mg/dl (74-100); Potassium 4.5 mmoL/L (3.5-5.1); Sodium 140 mmol/L (136-145); Total Protein,Serum 6.7 g/dl (6.3-8.2)
== END ==
PROVIDERS: PCP Internal Medicine Adolescent Medicine; Visit Provider Internal Medicine Adolescent Medicine
DX: E11.9 Type 2 diabetes mellitus without complications (principal)
CPT/HCPCS: 36415; 80053; 83036

== ENCOUNTER 2023-03-03 10:28 | Outpatient (CLI) | payer OTHER, SELFPAY ==
[2023-03-03 11:25] LABS: Chloride 103 mmol/L (98-107)
[2023-03-03 11:43] LABS: Calcium 9.7 mg/dl (8.4-10.2); Glucose 94 mg/dl (74-100)
[2023-03-03 11:44] LABS: Anion Gap 8.4 mEq/L (5-15); Blood Urea Nitrogen 13 mg/dl (7-17); Carbon Dioxide 28 mmol/L (22.0-30.0); Estimated Glomerular Filt Rate 92 ml/min (>60); GFR (African American) 112 ML/MIN (>60); Potassium 4.4 mmoL/L (3.5-5.1); Sodium 135 mmol/L (136-145)
== END 2023-03-03 23:59 ==
LOC: LAB 10:29
PROVIDERS: PCP Internal Medicine Adolescent Medicine; Visit Provider Internal Medicine Adolescent Medicine
DX: E11.9 Type 2 diabetes mellitus without complications (principal); Z79.84 Long term (current) use of oral hypoglycemic drugs; Z79.85 Long-term (current) use of injectable non-insulin antidiabetic drugs
CPT/HCPCS: 36415; 80048; 83036

== ENCOUNTER 2023-03-06 15:17 | Outpatient (CLI) | payer OTHER, SELFPAY ==
--- NOTE | 2023-03-06 15:18 | US_ITS ---
PROCEDURE: US TRANSVAGINAL CLINICAL INDICATION: following ovarian cyst COMPARISON: FINDINGS: Transvaginal sonographic images of the pelvis were obtained. UTERUS: 8.6 cm x 5.2cmx 3.7 cm anteverted with a thin endometrium. An IUD is present within the endometrial cavity in the correct position. LEFT OVARY: 6.0cmx6.1cmx5.8 cm with a volume of 125.4ml. There is a large simple cyst measuring 6.0 cm x 6.1 cmx 5.8 cm. RIGHT OVARY: 3.0cmx 2.0cmx1.6 cm with a volume of 5.1ml. There are several small follicles the largest of which measures 6 mm. Both ovaries are seen and appear normal. Doppler flow to both ovaries are seen. There is a small amount of fluid in the cul-de-sac. IMPRESSION: 1. Anteverted uterus normal in shape and size. 2. An IUD is present within the endometrial cavity in the correct position. 3. Right ovary appears normal. 4. Left ovary is almost entirely comprised of a simple cyst measuring 6.1 cm in size. 5. There is a small amount of fluid in the cul-de-sac. Dictated by: Berto Christian MD 03/07/2023 14:58 Berto Christian MD in [place] 03/07/2023 14:58
== END 2023-03-06 23:59 ==
LOC: RAD 15:18
PROVIDERS: PCP Internal Medicine Adolescent Medicine; Visit Provider Obstetrics & Gynecology
DX: N83.292 Other ovarian cyst, left side (principal)
CPT/HCPCS: 76830

== ENCOUNTER 2023-03-19 16:54 | Outpatient (CLI) | payer OTHER, SELFPAY ==
--- NOTE | 2023-03-19 16:55 | MM_ITS ---
PROCEDURE INFORMATION: Exam: MG Bilateral Screening 3D Mammography Exam date and time: 03/19/2023 4:43 PM Age: 42 years old Clinical indication: Screening examination TECHNIQUE: Imaging protocol: Bilateral Screening tomosynthesis and 2D mammography including computer-aided detection (CAD) when performed. COMPARISON: No relevant prior studies available. Baseline FINDINGS: MAMMOGRAPHY: Breast composition: The breasts are heterogeneously dense, which may obscure small masses. Mass: None. Architectural distortion: None. Calcifications: No suspicious calcifications. Asymmetric density: None. Skin thickening: None. Axillary adenopathy: None. IMPRESSION: No mammographic evidence of malignancy. Annual screening is recommended unless otherwise clinically indicated. ASSESSMENT: BI-RADS Category 1: Negative
== END 2023-03-19 23:59 ==
LOC: RAD 16:55
PROVIDERS: PCP Internal Medicine Adolescent Medicine; Visit Provider Nurse Practitioner Obstetrics & Gynecology
DX: Z12.31 Encounter for screening mammogram for malignant neoplasm of breast (principal)
CPT/HCPCS: 77063; 77067

== ENCOUNTER 2023-06-29 08:42 | Outpatient (CLI) | payer OTHER, SELFPAY ==
[2023-06-29 09:20] LABS: Basophils # 0.1 K/mm3 (0-0.2); Basophils % 1.2 % (0.1-2.0); Eosinophils # 0.2 K/mm3 (0.0-0.4); Hematocrit 43.8 % (37.0-47.0); Hemoglobin 14.2 g/dL (12.2-16.2); Lymphocytes # 0.9 K/mm3 (0.7-4.5); Lymphocytes % 17.5 % (10-50); Mean Corpuscular HGB Conc 32.5 g/dL (31.8-35.4); Mean Corpuscular Hemoglobin 30.9 pg (27.0-31.2); Mean Corpuscular Volume 94.9 fl (81-99); Mean Platelet Volume 10.6 fl (7.4-10.4); Monocytes # 0.3 K/mm3 (0.1-1.0); Monocytes % 5.1 % (1.7-9.3); Neutrophils # 3.5 K/mm3 (1.8-7.8); Neutrophils % 72.2 % (37.0-80.0); Platelet Count 262 K/mm3 (142-424); Red Blood Count 4.61 M/mm3 (4.20-5.40); Red Cell Distribution Width 13.6 % (11.5-17.5); White Blood Count 4.9 K/mm3 (4.8-10.8)
[2023-06-29 09:32] LABS: Alanine Aminotransferase 27 U/L (12-78); Albumin Level 4.4 g/dl (3.5-5.0); Albumin/Globulin Ratio 1.8 (1.1-1.8); Alkaline Phosphatase 82 U/L (38-126); Anion Gap 9.7 mEq/L (5-15); Aspartate Amino Transferase 31 U/L (14-36); Bilirubin,Total 0.5 mg/dl (0.2-1.3); Blood Urea Nitrogen 10 mg/dl (7-17); Carbon Dioxide 27 mmol/L (22.0-30.0); Chloride 107 mmol/L (98-107); Chol/HDL Ratio 2.6 (1-3.5); Cholesterol 128 mg/dl (140-200); Estimated Glomerular Filt Rate 92 ml/min (>60); GFR (African American) 111 ML/MIN (>60); Globulin 2.4 g/dL (1.3-3.2); Glucose 99 mg/dl (74-100); HDL Cholesterol 50 mg/dl (40-60); Potassium 4.7 mmoL/L (3.5-5.1); Sodium 139 mmol/L (136-145); Total Protein,Serum 6.8 g/dl (6.3-8.2); Triglycerides 58 mg/dl (30-150); VLDL Cholesterol 12 mg/dL (0-40)
[2023-06-29 09:43] LABS: Direct LDL Cholesterol 68.52 mg/dL (100-129)
[2023-06-29 09:47] LABS: Free T4 (Free Thyroxine) 1.47 ng/dl (0.78-2.19)
[2023-06-29 10:01] LABS: Thyroid Stimulating Hormone < 0.02 uIU/mL (0.465-4.68)
[2023-06-29 10:22] LABS: Vitamin B12 > 1000 pg/mL (239-931)
[2023-06-29 10:56] LABS: Hemoglobin A1C 5.1 % (4.0-6.0)
== END 2023-06-29 23:59 | disposition home or self-care (01) ==
LOC: LAB 08:43
PROVIDERS: PCP Internal Medicine Adolescent Medicine; Visit Provider Internal Medicine Adolescent Medicine
DX: E03.9 Hypothyroidism, unspecified (principal); E78.5 Hyperlipidemia, unspecified; E55.9 Vitamin D deficiency, unspecified; E11.9 Type 2 diabetes mellitus without complications; Z68.27 Body mass index [BMI] 27.0-27.9, adult; Z79.84 Long term (current) use of oral hypoglycemic drugs; Z79.85 Long-term (current) use of injectable non-insulin antidiabetic drugs; Z86.39 Personal history of other endocrine, nutritional and metabolic disease
CPT/HCPCS: 36415; 80053; 80061; 82306; 82607; 83036; 84439; 84443; 85025

== ENCOUNTER 2023-07-31 12:48 | Outpatient (CLI) | payer OTHER, SELFPAY ==
--- NOTE | 2023-07-31 12:48 | US_ITS ---
PROCEDURE: US TRANSVAGINAL CLINICAL INDICATION: 6 month follow up to ovarian cyst COMPARISON: US US TRANSVAGINAL from 03/06/2023 FINDINGS: Transvaginal sonographic images of the pelvis were obtained. UTERUS: 8.5 cm x 4.7 cmx 3.7 cm anteverted with a combined endometrial thickness of 7.2mm. There is an IUD within the uterine cavity in the correct position. LEFT OVARY: 7.8cmx6.3cmx6.5cm with a volume of 168.4ml. There is a persistent cyst in the left ovary measuring 6.6 cm x 5.7 cm x 6.0 cm. This is similar in size to the ultrasound performed in March 2023. RIGHT OVARY: 3.2 cmx 3.2cmx2.0cm with a volume of 10.8ml. There are multiple small follicles in the right ovary. Doppler flow to both ovaries are seen. There is no fluid in the cul-de-sac. IMPRESSION: 1. Anteverted uterus normal in shape and size. The endometrium is thin. 2. Within the uterine cavity is an IUD in the correct position. 3. The right ovary appears normal and has multiple small follicles. 4. Within the left ovary there is a 6.6 cm simple cyst that has not changed appreciably in size in the last 6 months. 5. No fluid in the cul-de-sac. Dictated by: Berto Christian MD 08/01/2023 07:12 Berto Christian MD in [place] 08/01/2023 07:12
== END 2023-07-31 23:59 | disposition home or self-care (01) ==
LOC: RAD 12:48
PROVIDERS: PCP Internal Medicine Adolescent Medicine; Visit Provider Nurse Practitioner Obstetrics & Gynecology
DX: N83.209 Unspecified ovarian cyst, unspecified side (principal)
CPT/HCPCS: 76830

== ENCOUNTER 2023-12-28 07:19 | Observation (INO) | payer OTHER, SELFPAY ==
[2023-12-28] VITALS (16 sets, daily range): BP systolic 96–143; BP diastolic 58–94; PULSE 62–94; RESP 16–18; TEMP 36.5–37.1; O2SAT 95–100; BMI 28.3; BMI 29.4
--- NOTE | 2023-12-28 07:30 | PC.NURSE ---
Dr. Baldwin at bedside for pt eval
--- NOTE | 2023-12-28 07:31 | PC.NURSE ---
dr manning at bedside
[2023-12-28 07:40] LABS: Microscopic, Urine URINE MICROSCOPIC (MICROSCOPIC)
[2023-12-28] MEDS: MORPHINE 4MG/ML SYRINGE 4 MG IV (07:40)
[2023-12-28] MEDS: ONDANSETRON 4MG/2ML VIAL 4 MG IV ×2 (07:40→17:29)
--- NOTE | 2023-12-28 07:44 | HMH.EDGENADL ---
Discharge Plan Disposition Patient Disposition: Admitted Condition: Fair Clinical Impressions Clinical Impression: Pain, Abdominal pain Discharge ED Provider: Wes Baldwin General Adult HPI General Chief complaint: Abdominal Pain Stated complaint: stomach pain Time Seen by Provider: 12/28/23 07:24 Mode of Arrival: Ambulatory Source of Information: Patient Limitations: No Limitations Description of Symptoms (Recalled from ER Triage Doc. by RN): Reports severe mid abdomen pain that has been off and on for approx 1 week until this morning. States that approx 1 hour ago it became constant and severe. History of Present Illness HPI narrative: 43 yoF patient presents with a chief complaint of acute worsening of stomach pain that has been occurring off and on for a couple of weeks. The pain is described as a non-cramping, generalized hurt that extends across the entire abdomen. The patient reports that the pain has become intolerable and more frequent since this morning. It is described as a severe stomachache that wraps around the abdomen and is associated with some lower back pain. The pain has been present for about an hour and did not wake the patient from sleep. The patient has not tried any medications for the pain. The patient has a medical history of diabetes, fibromyalgia, hypothyroidism. She has had gallbladder surgery in the remote past. The patient denies any chest pain, shortness of breath, pain during urination, vaginal bleeding, or discharge. She reports experiencing nausea yesterday but denies any current nausea, vomiting, diarrhea, or changes in bowel movements such as black or red stools. The patient consumes alcohol infrequently and takes fenofibrate, rosuvastatin for high cholesterol, and propranolol for migraines. She mentions that she has been trying to change her diet to see if it helps with the pain. Related Data Home Medications ?Medication ?Instructions ?Recorded ?Confirmed atogepant 60 mg tablet (Qulipta) 60 mg PO DAILY 04/12/21 12/28/23 levonorgestrel 21 mcg/24 hr (up to 1 device intrauterine DIRECTED 04/12/21 12/28/23 8 years) 52 mg intrauterine device (Mirena) propranolol 20 mg tablet 20 mg PO BID 04/12/21 12/28/23 fluoxetine 40 mg capsule (Prozac) 40 mg PO DAILY 09/11/22 12/28/23 dulaglutide 0.75 mg/0.5 mL 4.5 mg SQ WEEKLY 12/21/23 12/28/23 subcutaneous pen injector (Trulicity) levothyroxine 150 mcg tablet 150 mcg PO DAILY 12/21/23 12/28/23 (Synthroid) omeprazole 40 mg capsule,delayed 40 mg PO BID 30 days #60 caps 12/21/23 12/28/23 release tizanidine 2 mg tablet 2 - 4 mg PO BIDP PRN Muscle Spasm 12/21/23 12/28/23 vibegron 75 mg tablet (Gemtesa) 75 mg PO DAILY 12/21/23 12/28/23 metformin 500 mg tablet,extended 1,000 mg PO DAILY 12/28/23 12/28/23 release 24 hr rosuvastatin 20 mg tablet 20 mg PO DAILY 12/28/23 12/28/23 Allergies Allergy/AdvReac Type Severity Reaction Status Date / Time promethazine [PROMETHAZINE] Allergy Unknown Verified 12/21/23 15:47 [facility] Disclaimer: The information contained in this section may have been updated after the patient was seen, as this information can be updated by other users. Medical History (Updated 12/28/23 @ 16:19 by Wes Baldwin DO) LILIANE (obstructive sleep apnea) ACL injury tear Surgical History Cinebar teeth removed History of cholecystectomy Family History Other Cancer Coronary artery disease Diabetes Heart attack Hyperlipidemia Hypertension Kidney disease Thyroid disorder Social History Smoking Status: Unknown if ever smoked alcohol intake: current alcohol intake frequency: holidays/special occasions only counseling provided: none substance use type: denies use current occupational status: employed Travel in the last 8 weeks: None household members: spouse housing: house current occupation: [employer] current occupational exposures/hazards: No caffeine: Yes Other Medical History Have you received the Flu Vaccine for this season: No Have you received the Pneumonia Vaccine: No ROS Obtained: Yes Systems reviewed as appropriate & no additional complaints except as documented Physical Exam General General appearance: alert and in no apparent distress Head Head exam: atraumatic and normocephalic Eye Eye exam: Present normal appearance and EOMI ENT ENT exam: Present normal exam Neck Neck exam: Present normal inspection Chest Chest inspection: Present normal inspection and symmetric chest wall rise Respiratory Respiratory exam: Present normal lung sounds bilaterally Cardiovascular Cardiovascular exam: Present regular rate, normal rhythm and normal heart sounds Abdominal Exam Abdominal exam: Present soft, tenderness (Generalized - point of maximal tenderness at epigastrum) and normal bowel sounds; Absent distention, guarding, rebound, rigidity, diminished bowel sounds, Rovsing's sign or tenderness at McBurney's Point Extremities Exam Extremities exam: Present normal inspection and full ROM; Absent tenderness Back Exam Back exam: Present normal inspection Neurological Exam Neurological exam: Present alert and oriented X3 Psychiatric Psychiatric exam: Present normal affect and normal mood Skin Skin exam: Present warm, dry, intact and normal color; Absent rash Medical Decision Making Medical Records Medical records reviewed: Yes I reviewed the patient's medical records. Screening: Per USPSTF and CDC recommendations, given the prevalence of disease in our region, it is our hospital?s policy to screen for HIV and viral Hepatitis for all patients aged 18 and over and those with ongoing risk factors. Shahram Inquiry Pt receiving controlled substance: No Shahram was queried for this patient: No Vital Signs: 12/28/23 07:20 12/28/23 07:45 12/28/23 08:01 Temperature Temperature Source Pulse Rate 83 62 Pulse Rate [Radial] 94 H Respiratory Rate 16 Blood Pressure 141/88 H 133/94 H Blood Pressure [Right Arm] 143/88 H Blood Pressure Mean Blood Pressure Mean [Right Arm] 106 Blood Pressure Source Blood Pressure Source [Right Arm] Automatic Cuff Blood Pressure Position Blood Pressure Position [Right Arm] Sitting 02 Sat by Pulse Oximetry 97 95 97 Oxygen Delivery Method Room Air Room Air Room Air 12/28/23 08:18 12/28/23 08:40 12/28/23 09:00 Temperature Temperature Source Pulse Rate 78 89 82 Pulse Rate [Radial] Respiratory Rate Blood Pressure 128/89 112/73 120/76 Blood Pressure [Right Arm] Blood Pressure Mean 95 85 Blood Pressure Mean [Right Arm] Blood Pressure Source Blood Pressure Source [Right Arm] Blood Pressure Position Blood Pressure Position [Right Arm] 02 Sat by Pulse Oximetry 96 96 97 Oxygen Delivery Method Room Air Room Air Room Air 12/28/23 09:40 12/28/23 10:00 12/28/23 11:20 Temperature Temperature Source Pulse Rate 82 89 80 Pulse Rate [Radial] Respiratory Rate Blood Pressure 116/79 105/58 L 107/67 L Blood Pressure [Right Arm] Blood Pressure Mean 85 73 76 Blood Pressure Mean [Right Arm] Blood Pressure Source Blood Pressure Source [Right Arm] Blood Pressure Position Blood Pressure Position [Right Arm] 02 Sat by Pulse Oximetry 98 96 99 Oxygen Delivery Method Room Air Room Air Room Air 12/28/23 11:40 12/28/23 13:20 12/28/23 13:41 Temperature Temperature Source Pulse Rate 79 80 80 Pulse Rate [Radial] Respiratory Rate Blood Pressure 96/63 L 113/65 113/76 Blood Pressure [Right Arm] Blood Pressure Mean 73 76 88 Blood Pressure Mean [Right Arm] Blood Pressure Source Blood Pressure Source [Right Arm] Blood Pressure Position Blood Pressure Position [Right Arm] 02 Sat by Pulse Oximetry 100 100 99 Oxygen Delivery Method Room Air Room Air Room Air 12/28/23 13:57 12/28/23 14:00 Temperature 98.8 F Temperature Source Oral Pulse Rate 64 80 Pulse Rate [Radial] Respiratory Rate 18 Blood Pressure 113/76 115/74 Blood Pressure [Right Arm] Blood Pressure Mean 82 Blood Pressure Mean [Right Arm] Blood Pressure Source Automatic Cuff Blood Pressure Source [Right Arm] Blood Pressure Position Supine Blood Pressure Position [Right Arm] 02 Sat by Pulse Oximetry 99 Oxygen Delivery Method Room Air Room Air Lab Data Lab Results 12/28/23 07:29: WBC 7.8, RBC 4.75, Hgb 14.5, Hct 42.0, MCV 88.4, MCH 30.6, MCHC 34.6, RDW 13.8, Plt Count 333, MPV 7.8, Neut % (Auto) 72.9, Lymph % (Auto) 20.4, [place] % (Auto) 3.7, Eos % (Auto) 2.3, Baso % (Auto) 0.9, Neut # (Auto) 5.7, Lymph # (Auto) 1.6, [place] # (Auto) 0.3, Eos # (Auto) 0.2, Baso # (Auto) 0.1, Sodium 139, Potassium 4.2, Chloride 106, Carbon Dioxide 23, Anion Gap 14.2, BUN 16, Creatinine 0.80, Estimated Creat Clear 105, Estimated GFR 79, Est GFR ( Amer) 95, Glucose 115 H, Lactate 0.9, Calcium 9.5, Total Bilirubin 0.5, AST 25, ALT 20, Alkaline Phosphatase 65, Troponin I < 0.01, Total Protein 7.4, Albumin 4.5, Globulin 2.9, Albumin/Globulin Ratio 1.6, Lipase 182, Serum HCG, Qual Negative, Urine Color Yellow, Urine Appearance Clear, Urine pH 6.0, Ur Specific Bradley >= 1.030, Urine Protein Negative, Urine Glucose (UA) Negative, Urine Ketones Negative, Urine Blood 1+ A, Urine Nitrate Negative, Urine Bilirubin Negative, Urine Urobilinogen 0.2, Ur Leukocyte Esterase Negative, Urine RBC None, Urine WBC Occasional, Ur Squamous Epith Cells Occasional, Urine Bacteria Trace, HIV 1&2 Antibody Rapid Nonreactive 12/28/23 07:29 12/28/23 07:29 Orders (Tests/Meds): ED MEDICATIONS Generic Name Dose Route Start Last Admin Trade Name Apolonia PRN Reason Stop Dose Admin Oxycodone HCl 5 mg 12/28/23 13:35 12/28/23 13:44 Oxycodone 5mg Immediate Release Tablet PO 01/27/24 13:34 5 mg Q6HP PRN Administration Severe Pain (7-10) Sodium Chloride 10 ml 12/28/23 07:31 Sodium Chloride 0.9% 10ml Flush Syringe IV 01/27/24 07:30 NEEDED PRN Maintain IV Site Sodium Chloride 10 ml 12/28/23 09:24 12/28/23 09:25 Sodium Chloride 0.9% 10ml Syr (Rad Only) IV 01/27/24 09:23 10 ml NEEDED PRN Administration Maintain IV Site Discontinued Medications Generic Name Dose Route Start Last Admin Trade Name Apolonia PRN Reason Stop Dose Admin Acetaminophen 1,000 mg 12/28/23 11:14 12/28/23 11:20 Acetaminophen 500mg Tab PO 12/28/23 11:15 1,000 mg ONCE ONE Administration Dicyclomine HCl 20 mg 12/28/23 13:35 12/28/23 13:45 Dicyclomine 10mg Capsule PO 12/28/23 13:36 20 mg ONCE ONE Administration Diphenhydramine HCl 50 mg 12/28/23 10:16 12/28/23 10:22 Diphenhydramine 50mg/Ml Vial IV 12/28/23 10:17 50 mg ONCE ONE Administration Fentanyl Citrate 50 mcg 12/28/23 08:47 12/28/23 08:53 Fentanyl 100mcg/2ml Vial IV 12/28/23 08:48 50 mcg ONCE ONE Administration Hydromorphone HCl 4 mg 12/28/23 08:03 12/28/23 08:09 Hydromorphone 4 Mg/Ml Syringe IV 12/28/23 08:04 Not Given ONCE ONE Hydromorphone HCl 1 mg 12/28/23 08:07 12/28/23 08:09 Hydromorphone 2mg/Ml Syringe IV 12/28/23 08:08 1 mg ONCE ONE Administration Hydromorphone HCl 1 mg 12/28/23 09:30 12/28/23 09:37 Hydromorphone 2mg/Ml Syringe IV 12/28/23 09:31 1 mg ONCE ONE Administration Ibuprofen 600 mg 12/28/23 11:14 12/28/23 11:20 Ibuprofen 600 Mg Tablet PO 12/28/23 11:15 600 mg ONCE ONE Administration Iopamidol 80 ml 12/28/23 09:24 12/28/23 09:25 Iopamidol-370 (76%);100ml Bottle IV 12/28/23 09:25 80 ml ONCE ONE Administration Ketorolac Tromethamine 30 mg 12/28/23 08:22 12/28/23 08:32 Ketorolac 30mg/Ml Vial IV 12/28/23 08:23 30 mg ONCE ONE Administration Morphine Sulfate 4 mg 12/28/23 07:33 12/28/23 07:40 Morphine 4mg/Ml Syringe IV 12/28/23 07:34 4 mg ONCE ONE Administration Ondansetron HCl 4 mg 12/28/23 07:33 12/28/23 07:40 Ondansetron 4mg/2ml Vial IV 12/28/23 07:34 4 mg ONCE ONE Administration Simethicone 160 mg 12/28/23 13:35 12/28/23 13:44 Simethicone 80mg Chewable Tablet PO 12/28/23 13:36 160 mg ONCE ONE Administration Sodium Chloride 50 ml 12/28/23 09:24 12/28/23 09:24 0.9 % Sodium Chloride 50 Ml Vial IV 12/28/23 09:25 50 ml ONCE ONE Administration ORDERS Category Date Time Status CT angio abdomen pelvis Stat Cat Scan 12/28/23 09:10 Completed CTA Chest [CT angio chest - dissection] Stat Cat Scan 12/28/23 09:10 Completed US transvaginal Stat Exams 12/28/23 10:31 Completed Complete Blood Count Auto Diff AMLAB Lab 12/29/23 06:00 Ordered Complete Blood Count Auto Diff Stat Lab 12/28/23 07:29 Completed Comprehensive Metabolic Panel AMLAB Lab 12/29/23 06:00 Ordered Comprehensive Metabolic Panel Stat Lab 12/28/23 07:29 Completed HCG Qualitative, Serum Stat Lab 12/28/23 07:29 Completed HIV (1&2) Antibody Rapid Stat Lab 12/28/23 07:29 Completed Hep C Ab with Reflex to RNA Stat Lab 12/28/23 07:29 Received Lactic Acid Stat Lab 12/28/23 07:29 Completed Lipase AMLAB Lab 12/29/23 06:00 Ordered Lipase Stat Lab 12/28/23 07:29 Completed Troponin I Q3H Lab 12/28/23 07:29 Completed Urinalysis and Microscopic Stat Lab 12/28/23 07:29 Completed US Pelvic Stat Ultrasound 12/28/23 11:36 Completed ECG Data Tracing #1: I reviewed this ECG and interpreted as documented below: Normal sinus rhythm, normal axis, normal intervals, no noted ST elevation. ECG initial impression date: 12/28/23 ECG initial impression time: 08:02 Tracing #2: I reviewed this ECG and interpreted as documented below: Normal sinus rhythm, normal axis, normal intervals, no noted ST elevation HEART Score History (anamnesis): Slightly suspicious ECG: Normal Age: <45 years Risk factors: No known risk factors Troponin: </= normal limit HEART Score: 0 Medical Decision Narrative: Patient with history and exam per above presenting for evaluation of acute worsening of abdominal pain that has been present for 2 weeks. Diagnoses considered include pancreatitis, appendicitis, UTI, , aortic abnormality, ACS ED workup and treatment included: As above Labs were independently interpreted by me, significant for no noted leukocytosis, no anemia. Negative test. CMP without acute electrolyte abnormality, normal lactate, negative troponin, normal lipase, no noted elevation of LFTs. Urinalysis with hematuria, no noted UTI Imaging was independently visualized and interpreted by me, significant for no noted PE, no dissection or aneurysm. Patient has 7.2 cm pelvic cyst. Radiology report suggest MRI pelvis with and without contrast for further assessment. Ultrasound with no noted ovarian torsion, flow noted. Cyst noted consistent with findings of CT. Please refer to radiology report for full details. My clinical impression at this time is most consistent with intractable abdominal pain, pelvic cyst. Discussed patient with hospitalist on-call Dr. Leung who after evaluation admitted patient to his service with hemodynamically stable vitals. I discussed my clinical impression with patient and answered all questions. At this time, the evidence for any other entities in the differential is insufficient to warrant any further testing or ED observation. This was explained to the patient. The patient was advised that persistent or worsening symptoms require further evaluation. Critical Care Critical Care Time Critical Care Time: Yes Attestation: On 12/28/23, the high probability of a clinically significant, sudden or life threatening deterioration of the following system(s) required my full and direct attention, intervention and personal management. The time I documented below is in addition to time spent performing reported procedures but includes the following listed in this critical care notation. Total Time Total Critical Care Time: 35
[2023-12-28 07:47] LABS: Basophils # 0.1 K/mm3 (0-0.2); Basophils % 0.9 % (0.1-2.0); Eosinophils # 0.2 K/mm3 (0.0-0.4); Eosinophils % 2.3 % (0.1-12.0); Hemoglobin 14.5 g/dL (12.2-16.2); Lymphocytes # 1.6 K/mm3 (0.7-4.5); Lymphocytes % 20.4 % (10-50); Mean Corpuscular HGB Conc 34.6 g/dL (31.8-35.4); Mean Corpuscular Hemoglobin 30.6 pg (27.0-31.2); Mean Corpuscular Volume 88.4 fl (81-99); Mean Platelet Volume 7.8 fl (7.4-10.4); Monocytes # 0.3 K/mm3 (0.1-1.0); Monocytes % 3.7 % (1.7-9.3); Neutrophils # 5.7 K/mm3 (1.8-7.8); Neutrophils % 72.9 % (37.0-80.0); Platelet Count 333 K/mm3 (142-424); Red Blood Count 4.75 M/mm3 (4.20-5.40); Red Cell Distribution Width 13.8 % (11.5-17.5); White Blood Count 7.8 K/mm3 (4.8-10.8)
[2023-12-28 07:53] LABS: Albumin Level 4.5 g/dl (3.5-5.0); Chloride 106 mmol/L (98-107); Potassium 4.2 mmoL/L (3.5-5.1); Sodium 139 mmol/L (136-145)
[2023-12-28 07:55] LABS: Blood Urea Nitrogen 16 mg/dl (7-17); Creatinine Clearance Estimated 105 mL/min (50-200); Estimated Glomerular Filt Rate 79 ml/min (>60); GFR (African American) 95 ML/MIN (>60)
[2023-12-28 07:56] LABS: Alanine Aminotransferase 20 U/L (12-78); Albumin/Globulin Ratio 1.6 (1.1-1.8); Alkaline Phosphatase 65 U/L (38-126); Anion Gap 14.2 mEq/L (5-15); Aspartate Amino Transferase 25 U/L (14-36); Bilirubin,Total 0.5 mg/dl (0.2-1.3); Calcium 9.5 mg/dl (8.4-10.2); Carbon Dioxide 23 mmol/L (22.0-30.0); Globulin 2.9 g/dL (1.3-3.2); Glucose 115 mg/dl (74-100); Lipase 182 U/L (23-300); Total Protein,Serum 7.4 g/dl (6.3-8.2)
[2023-12-28 07:59] LABS: Lactic Acid 0.9 mmol/L (0.7-2.1)
--- NOTE | 2023-12-28 08:00 | ECG_ITS ---
APPROVED REPORT Exam: Resting ECG HR:76 bpm ECG Measurements Heart Rate 76 AXES LA 158 P 32 QRSd 78 QRS 36 QT 361 T 48 QTc 392 Conclusion SINUS RHYTHM NORMAL ECG UNCONFIRMED REPORT Electronically signed by : SHANNON CARMEN, 12/29/2023 05:28:46
--- NOTE | 2023-12-28 08:04 | PC.NURSE ---
pt states the pain meds is not touching pain she feeling, she is bent over in bed. er md notified of pt pain and plans to order something else for pain
[2023-12-28 08:05] LABS: Appearance,Urine CLEAR (Clear); Bilirubin,Urine Negative (Negative); Blood, Urine 1+ (Negative); Color,Urine YELLOW (Yellow); Glucose,Urine (UA) Negative (Negative); Ketones,Urine Negative (Negative); Leukocyte Esterase,Urine Negative (Negative); Nitrate,Urine Negative (Negative); Protein,Urine Negative (Negative); Specific Gravity, Urine >= 1.030 (1.005-1.030); Urobilinogen,Urine 0.2 EU/dl (0.2)
[2023-12-28] MEDS: HYDROMORPHONE 2MG/ML SYRINGE 1 MG IV ×2 (08:09→09:37)
[2023-12-28] MEDS: KETOROLAC 30MG/ML VIAL 30 MG IV (08:32)
[2023-12-28 08:35] LABS: Bacteria,Urine Trace /lpf; Squamous Epithelial Cell,Urine Occasional #/hpf (0-5); WBC,Urine Occasional #/hpf (0-3)
[2023-12-28 08:45] LABS: Troponin I < 0.01 ng/ml (0.00-0.034)
--- NOTE | 2023-12-28 08:52 | ECG_ITS ---
APPROVED REPORT Exam: Resting ECG HR:83 bpm ECG Measurements Heart Rate 83 AXES NE 165 P 26 QRSd 81 QRS 31 QT 357 T 58 QTc 396 Conclusion SINUS RHYTHM LOW QRS VOLTAGE IN PRECORDIAL LEADS [QRS DEFLECTION < 1.0 mV IN CHEST LEADS] BORDERLINE ECG UNCONFIRMED REPORT Electronically signed by : SHANNON CARMEN, 12/29/2023 05:28:09
[2023-12-28] MEDS: FENTANYL 100MCG/2ML VIAL 50 MCG IV (08:53)
[2023-12-28 09:09] LABS: HCG Qualitative, Serum Negative (Negative)
--- NOTE | 2023-12-28 09:10 | CT_ITS ---
PROCEDURE INFORMATION: Exam: CTA Abdomen and Pelvis With Contrast Exam date and time: 12/28/2023 9:19 AM Age: 43 years old Clinical indication: Abdominal pain; Acute; Additional info: Abd pain, going into back - unproportional to exam TECHNIQUE: Imaging protocol: Computed tomographic angiography of the abdomen and pelvis with contrast. Exam focused on the arteries. 3D rendering (Not supervised by radiologist): MIP and/or 3D reconstructed images were created by the technologist. Radiation optimization: All CT scans at this facility use at least one of these dose optimization techniques: automated exposure control; mA and/or kV adjustment per patient size (includes targeted exams where dose is matched to clinical indication); or iterative reconstruction. Contrast material: ISOUVE 370; Contrast volume: 80 ml; Contrast route: INTRAVENOUS (IV); COMPARISON: CT ANGIO CHEST 12/28/2023 9:19 AM FINDINGS: Aorta: No aortic aneurysm. No aortic dissection. Celiac trunk and mesenteric arteries: No occlusion or significant stenosis. Renal arteries: No occlusion or significant stenosis. Right iliac arteries: No occlusion or significant stenosis. Left iliac arteries: No occlusion or significant stenosis. Liver: No mass. Gallbladder and biliary ducts: Surgical clips are noted in the gallbladder fossa compatible with a prior cholecystectomy. Pancreas: Unremarkable. No mass. No ductal dilation. Spleen: Unremarkable. No splenomegaly. Adrenal glands: Unremarkable. No mass. Kidneys and ureters: The kidneys enhance symmetrically there is no hydronephrosis. Stomach and bowel: There is mild gaseous distension of the proximal 2/3 of the colon with scattered stool. Appendix: No evidence of appendicitis. Intraperitoneal space: Unremarkable. No free air. No significant fluid collection. Lymph nodes: Unremarkable. No enlarged lymph nodes. Urinary bladder: Unremarkable. No mass. Reproductive: An intrauterine device is present. Anterior to the uterus there is a 6.5 x 7.2 x 5.9 cm cyst, probably adnexal in origin which is sitting on top of the compressed urinary bladder. Suggest MRI of the pelvis with and without intravenous contrast 2 further assess. Bones/joints: No acute fracture. Soft tissues: Unremarkable. IMPRESSION: No evidence for aortic aneurysm or dissection. 7.2 cm pelvic cyst, likely gynecologic. Suggest MRI of the pelvis with and without intravenous contrast to further assess.
--- NOTE | 2023-12-28 09:10 | CT_ITS ---
PROCEDURE INFORMATION: Exam: CTA Chest With Contrast Exam date and time: 12/28/2023 9:19 AM Age: 43 years old Clinical indication: Other: Abd pain; Additional info: Abd pain, going into back - unproportional to exam TECHNIQUE: Imaging protocol: Computed tomographic angiography of the chest with contrast. Exam focused on the arteries. 3D rendering (Not supervised by radiologist): MIP and/or 3D reconstructed images were created by the technologist. Radiation optimization: All CT scans at this facility use at least one of these dose optimization techniques: automated exposure control; mA and/or kV adjustment per patient size (includes targeted exams where dose is matched to clinical indication); or iterative reconstruction. Contrast material: ISOVUE 370; Contrast volume: 80 ml; Contrast route: INTRAVENOUS (IV); COMPARISON: CT ANGIO ABDOMEN PELVIS 12/28/2023 9:19 AM FINDINGS: Pulmonary arteries: Normal. No pulmonary emboli. Aorta: Unremarkable. No aortic aneurysm. No aortic dissection. Lungs: There is streaky and gravity dependent atelectasis noted in the lower lobes. Pleural spaces: Unremarkable. No pneumothorax. No pleural effusion. Heart: Unremarkable. No cardiomegaly. No pericardial effusion. Coronary arteries: In there is no coronary artery calcification. Lymph nodes: Unremarkable. No enlarged lymph nodes. Bones/joints: Unremarkable. No acute fracture. Soft tissues: Unremarkable. IMPRESSION: No evidence for pulmonary embolism or aortic aneurysm/dissection.
--- NOTE | 2023-12-28 09:10 | PC.NURSE ---
PT TO CT
--- NOTE | 2023-12-28 09:22 | PC.NURSE ---
Pt back in room from Rad
--- NOTE | 2023-12-28 09:22 | PC.NURSE ---
PT RETURNED FROM CT
[2023-12-28] MEDS: 0.9 % SODIUM CHLORIDE 50 ML VIAL IV (09:24)
[2023-12-28] MEDS: IOPAMIDOL-370 (76%);100ML BOTTLE 80 ML IV (09:25)
[2023-12-28] MEDS: SODIUM CHLORIDE 0.9% 10ML SYR (RAD ONLY) 10 ML IV (09:25)
--- NOTE | 2023-12-28 10:01 | PC.NURSE ---
PT FEELING BETTER, PT ABLE TO SIT UP IN BED AND TALK WITH VISITORS. NO NEEDS AT THIS TIME. CALL LIGHT WITHIN REACH
[2023-12-28] MEDS: diphenhydrAMINE 50MG/ML VIAL 50 MG IV (10:22)
--- NOTE | 2023-12-28 10:31 | US_ITS ---
PROCEDURE: US TRANSVAGINAL CLINICAL INDICATION: pelvic cyst, abd pain COMPARISON: US US TRANSVAGINAL from 07/31/2023 FINDINGS: Transvaginal sonographic images of the pelvis were obtained. UTERUS: 9.1cm x 5.2cmx 4.2cm midline with a combined endometrial thickness of 5.1mm. There is an IUD within the uterine cavity in the correct position. LEFT OVARY: Not visualized. RIGHT OVARY: 2.1cmx 1.8 cmx1.9 cm with a volume of 3.6ml. There are multiple small peripheral follicles. Right ovary is seen and appears normal. Doppler flow to right ovary is seen. There is no fluid in the cul-de-sac. IMPRESSION: 1. Midline uterus normal in shape and size. The endometrium is thin. Within the uterine cavity is an IUD in the correct position. 2. The right ovary is seen and appears multi-cystic. The left ovary is not visualized. 3. No fluid in the cul-de-sac. 4. A trans abdominal ultrasound was suggested since the CT scan showed a left ovarian cyst. Dictated by: Berto Christian MD 12/28/2023 13:47 Berto Christian MD in [facility] 12/28/2023 13:47
[2023-12-28 10:32] LABS: HIV (1&2) Antibody Rapid NONREACTIVE (NONREACTIVE)
--- NOTE | 2023-12-28 11:12 | PC.NURSE ---
PT RETURNED FROM US
[2023-12-28] MEDS: IBUPROFEN 600 MG TABLET PO (11:20)
[2023-12-28] MEDS: ACETAMINOPHEN 500MG TAB 1000 MG PO (11:20)
--- NOTE | 2023-12-28 11:36 | US_ITS ---
PROCEDURE: US PELVIC CLINICAL INDICATION: R/O TORSION COMPARISON: US US TRANSVAGINAL from 07/31/2023 US US TRANSVAGINAL from 12/28/[address] ANGIO ABDOMEN PELVIS from 12/28/2023 FINDINGS: Follow-up transabdominal ultrasound reveals a left ovarian cyst above the uterus. The ovary is almost entirely made up of a simple cyst measuring 6.8 cm by 7.0 cm by 6.0 cm There is good flow to the left ovary and no evidence of torsion. IMPRESSION: 1. The left ovary is seen on this view and contains a simple cyst measuring 7 cm. 2. The uterus is seen anteverted. 3. There is good flow seen to the left ovary a no evidence of torsion. 4. Results were given to the ER doctor. Dictated by: Berto Christian MD 12/28/2023 13:46 Berto Christian MD in [facility] 12/28/2023 13:46
--- NOTE | 2023-12-28 11:38 | PC.NURSE ---
PT AND FAMILY UPDATED ON POC
--- NOTE | 2023-12-28 11:47 | PC.NURSE ---
PT TO US
--- NOTE | 2023-12-28 12:05 | PC.NURSE ---
DR MILLER SPEAKING WITH DR SAINZ
--- NOTE | 2023-12-28 12:09 | PC.NURSE ---
PT RETURNED FROM CT
--- NOTE | 2023-12-28 12:18 | PC.NURSE ---
DR MILLER AT BEDSIDE TO UPDATE PT AND FAMILY
--- NOTE | 2023-12-28 12:18 | PC.NURSE ---
Dr. Baldwin at bedside
--- NOTE | 2023-12-28 12:48 | PC.NURSE ---
DR MILLER SPEAKING WITH DR PAUL
--- NOTE | 2023-12-28 13:25 | PC.NURSE ---
DR PAUL AT BEDSIDE
--- NOTE | 2023-12-28 13:37 | EXP.HP ---
History of Present Illness *Admission Date: 12/28/23 *Reason for visit:: Intractable abdominal pain *History of present illness: 43-year-old female with history of diabetes, fibromyalgia, hypothyroid who presented to the ER with severe worsening abdominal pain this morning. She has been having abdominal pain off and on for several weeks. Became more severe over the past week with increased intensity. Was manageable however until this morning when she woke up and she was doubled over in severe pain, stabbing in character. Unrelenting. On arrival to the ER, difficulty managing her pain and getting it under control. Took multiple doses of Dilaudid, morphine, multimodal therapy. Workup relatively unremarkable with normal labs, lipase normal. Abdominal imaging concerning for significant gas burden. Of note, is on GLP-1 medications. Last bowel movement Thursday. Due to intractable nature of her pain and difficulty to control, medicine consulted for admission for observation and further management Denies shortness of breath, chest pain, fever or chills. Having nausea. No diarrhea. Pain predominantly in the upper abdomen. Only abnormal finding on CT was an adnexal cyst, longstanding. Pain not in her pelvis. Reports pain is worse in the morning when she wakes up. Sometimes worse after she eats. Of note, does not have a gallbladder. [facility] Disclaimer: The information contained in this section may have been updated after the patient was seen, as this information can be updated by other users. Medical History LILIANE (obstructive sleep apnea) ACL injury tear Surgical History [place] teeth removed History of cholecystectomy Family History Other Cancer Coronary artery disease Diabetes Heart attack Hyperlipidemia Hypertension Kidney disease Thyroid disorder Social History Smoking Status: Unknown if ever smoked alcohol intake: current alcohol intake frequency: holidays/special occasions only counseling provided: none substance use type: denies use current occupational status: employed Travel in the last 8 weeks: None household members: spouse housing: house current occupation: [employer] current occupational exposures/hazards: No caffeine: Yes Other Medical History Have you received the Flu Vaccine for this season: No Have you received the Pneumonia Vaccine: No Review of Systems Review of Systems Review of systems (narrative): 14 point review of systems performed, pertinent positives and negatives as per HPI Meds Home Medications and Allergies Home Medications ?Medication ?Instructions ?Recorded ?Confirmed ?Type atogepant 60 mg tablet (Qulipta) 60 mg PO DAILY 04/12/21 12/28/23 History levonorgestrel 21 mcg/24 hr (up to 1 device intrauterine DIRECTED 04/12/21 12/28/23 History 8 years) 52 mg intrauterine device (Mirena) propranolol 20 mg tablet 20 mg PO BID 04/12/21 12/28/23 History fluoxetine 40 mg capsule (Prozac) 40 mg PO DAILY 09/11/22 12/28/23 History dulaglutide 0.75 mg/0.5 mL 4.5 mg SQ WEEKLY 12/21/23 12/28/23 History subcutaneous pen injector (Trulicity) levothyroxine 150 mcg tablet 150 mcg PO DAILY 12/21/23 12/28/23 History (Synthroid) omeprazole 40 mg capsule,delayed 40 mg PO BID 30 days #60 caps 12/21/23 12/28/23 History release tizanidine 2 mg tablet 2 - 4 mg PO BIDP PRN Muscle Spasm 12/21/23 12/28/23 History vibegron 75 mg tablet (Gemtesa) 75 mg PO DAILY 12/21/23 12/28/23 History metformin 500 mg tablet,extended 1,000 mg PO DAILY 12/28/23 12/28/23 History release 24 hr rosuvastatin 20 mg tablet 20 mg PO DAILY 12/28/23 12/28/23 History New Prescriptions to Start Prescriptions: Allergies Allergy/AdvReac Type Severity Reaction Status Date / Time promethazine [PROMETHAZINE] Allergy Unknown Verified 12/21/23 15:47 Exam Data for Last 24 hours Vital signs and Labs for Last 24 Hours: Pulse Resp BP Pulse Ox O2 Del Method 89 16 105/58 L 96 Room Air 12/28/23 10:00 12/28/23 07:20 12/28/23 10:00 12/28/23 10:00 12/28/23 10:00 Laboratory Results - last 24 hr 12/28/23 07:29: WBC 7.8, RBC 4.75, Hgb 14.5, Hct 42.0, MCV 88.4, MCH 30.6, MCHC 34.6, RDW 13.8, Plt Count 333, MPV 7.8, Neut % (Auto) 72.9, Lymph % (Auto) 20.4, [place] % (Auto) 3.7, Eos % (Auto) 2.3, Baso % (Auto) 0.9, Neut # (Auto) 5.7, Lymph # (Auto) 1.6, [place] # (Auto) 0.3, Eos # (Auto) 0.2, Baso # (Auto) 0.1, Sodium 139, Potassium 4.2, Chloride 106, Carbon Dioxide 23, Anion Gap 14.2, BUN 16, Creatinine 0.80, Estimated Creat Clear 105, Estimated GFR 79, Est GFR ( Amer) 95, Glucose 115 H, Lactate 0.9, Calcium 9.5, Total Bilirubin 0.5, AST 25, ALT 20, Alkaline Phosphatase 65, Troponin I < 0.01, Total Protein 7.4, Albumin 4.5, Globulin 2.9, Albumin/Globulin Ratio 1.6, Lipase 182, Serum HCG, Qual Negative, Urine Color Yellow, Urine Appearance Clear, Urine pH 6.0, Ur Specific [place] >= 1.030, Urine Protein Negative, Urine Glucose (UA) Negative, Urine Ketones Negative, Urine Blood 1+ A, Urine Nitrate Negative, Urine Bilirubin Negative, Urine Urobilinogen 0.2, Ur Leukocyte Esterase Negative, Urine RBC None, Urine WBC Occasional, Ur Squamous Epith Cells Occasional, Urine Bacteria Trace, HIV 1&2 Antibody Rapid Nonreactive I & O for Last 24 hours: Intake & Output 12/25/23 12/26/23 12/27/23 12/28/23 23:59 23:59 23:59 23:59 Weight 72.575 kg Constitutional Constitutional: mild distress, average body habitus and cooperative *Routine HEENT Exam Head: Present normocephalic Eye: Present EOMI and PERRL ENT: Present mucous membranes moist *Routine Neck Exam Neck: Present supple; Absent lymphadenopathy *Routine Respiratory Exam Respiratory: Present CTA bilaterally; Absent rhonchi, wheezes or crackles *Routine Cardiovascular Exam Cardiovascular: Present RRR *Routine Abdominal Exam Abdominal: Present soft and tenderness (Diffuse tenderness, worse in upper abdomen, most prominent left upper abdomen.) Comments: Hypoactive bowel sounds *Routine Rectal Exam Rectal:: deferred *Routine Genitalia Exam Genitalia:: deferred *Routine Extremities Exam Extremities: Absent cyanosis, clubbing or edema *Routine Skin Exam Skin: Present intact and warm; Absent rash *Routine Neurological Exam Neurological: Present alert, oriented X3 and moving all extremities; Absent altered mental status Assessment and Plan *Assessment and plan (1) Intractable abdominal pain: Status: Acute Category: Medical Code(s): R10.9 - Unspecified abdominal pain (2) Hypothyroidism: Status: Chronic Qualifiers: Hypothyroidism type: acquired Qualified Code(s): E03.9 - Hypothyroidism, unspecified Category: Medical Code(s): E03.9 - Hypothyroidism, unspecified (3) Diabetes 1.5, managed as type 2: Problem Comment: On Trulicity Status: Chronic Category: Medical Code(s): E13.9 - Other specified diabetes mellitus without complications (4) Hyperlipemia: Status: Chronic Qualifiers: Hyperlipidemia type: unspecified Qualified Code(s): E78.5 - Hyperlipidemia, unspecified Category: Medical Code(s): E78.5 - Hyperlipidemia, unspecified Plan 43-year-old female with diabetes, hypothyroid, intractable abdominal pain. Workup in the ER with normal labs but exam remarkable for severe pain that is difficult to control with IV opiates. Discussed case with ER physician, request admission for observation and pain control. After evaluating the patient, I agreed to admit for further management overnight. Initiated on multimodal therapy including oxycodone, Bentyl, simethicone. Will monitor overnight. Problems addressed as follows: Intractable abdominal pain - Per my review of CT abdomen, no bowel obstruction. Benign-appearing pancreas. Significant gas burden in colon. Mild amount of stool, low concern for significant constipation. White count normal at 7.8, hemoglobin 14.5. Electrolytes and kidney function normal with BUN 16, creatinine 0.8. Glucose 115. Lipase unremarkable at 182. Urine with minimal blood. No concern for UTI. -Differential includes constipation, gaseous distention, irritable bowel disease, side effect of GLP-1, pancreatitis, common bile duct obstruction. With normal liver enzymes and lipase, low concern for organ dysfunction. -Repeat CBC, CMP, lipase ordered for the morning. -Will monitor response to treatment. Continue oxycodone 5 mg every 4 hours for severe breakthrough pain, Bentyl 20 mg 4 times a day. Simethicone 160 mg every 6 hours as needed. Monitor for toxicity or side effects. -Encouraged ambulation and liberal flatus. -Some mild improvement after passing gas after admission. Pain recurred after eating however. -Will consider GI consult if symptoms worsen, no indication for consult at this time. Sliding scale insulin with fingersticks ACHS for diabetes Continue Prozac 40 mg daily for mood Continue levothyroxine 150 mcg daily for thyroid Continue propranolol 20 g twice daily Full code Patel score 0, no indication for DVT prophylaxis Full liquid diet
[2023-12-28] MEDS: OXYCODONE 5MG IMMEDIATE RELEASE TABLET 5 MG PO ×2 (13:44→19:40)
[2023-12-28] MEDS: SIMETHICONE 80MG CHEWABLE TABLET 160 MG PO (13:44)
[2023-12-28] MEDS: DICYCLOMINE 10MG CAPSULE 20 MG PO ×2 (13:45→21:02)
--- NOTE | 2023-12-28 13:45 | PC.NURSE ---
[employer] NOTIFIED OF ADMISSION
--- NOTE | 2023-12-28 14:08 | HMH.PHAINT1 ---
Pharmacy Intervention Comments: MEDICATION RECONCILIATION COMPLETED ON PATIENT USING EXTERNAL FILL HISTORY FROM PHARMACY. -LENIN GRIMALDO, HANNAHD
--- NOTE | 2023-12-28 14:18 | PC.NURSE ---
arrived by w/c from ED
[2023-12-28 16:42] LABS: POC Glucose,Bedside 91 (70-110)
[2023-12-28 19:49] LABS: POC Glucose,Bedside 97 (70-110)
[2023-12-28] MEDS: PANTOPRAZOLE 40MG TABLET 40 MG PO (21:01)
[2023-12-28] MEDS: PROCHLORPERAZINE 10MG/2ML VIAL 10 MG IV (21:02)
[2023-12-29] VITALS: BP 94/57; PULSE 73; RESP 16; TEMP 36.4; O2SAT 95
[2023-12-29 04:00] VITALS: BP 99/59; PULSE 77; RESP 16; TEMP 36.4; O2SAT 97; BMI 29.5
--- NOTE | 2023-12-29 06:20 | PC.NURSE ---
Alert and oriented. Complained of pain one time, treated per apr. Complained of nausea one time, treated per apr. Abdomen soft and tender. Bowel sounds active, patient is passing gas. Independent in the room. Walked the hallway last night. Call light in reach.
[2023-12-29 06:40] LABS: POC Glucose,Bedside 87 (70-110)
[2023-12-29 06:45] LABS: Albumin Level 3.9 g/dl (3.5-5.0); Chloride 104 mmol/L (98-107); Potassium 4.1 mmoL/L (3.5-5.1); Sodium 139 mmol/L (136-145)
[2023-12-29 06:48] LABS: Alanine Aminotransferase 169 U/L (12-78); Albumin/Globulin Ratio 1.5 (1.1-1.8); Alkaline Phosphatase 84 U/L (38-126); Anion Gap 11.1 mEq/L (5-15); Aspartate Amino Transferase 131 U/L (14-36); Bilirubin,Total 0.5 mg/dl (0.2-1.3); Blood Urea Nitrogen 9 mg/dl (7-17); Carbon Dioxide 28 mmol/L (22.0-30.0); Creatinine Clearance Estimated 97 mL/min (50-200); Estimated Glomerular Filt Rate 69 ml/min (>60); GFR (African American) 83 ML/MIN (>60); Globulin 2.6 g/dL (1.3-3.2); Lipase 84 U/L (23-300); Total Protein,Serum 6.5 g/dl (6.3-8.2)
[2023-12-29 06:49] LABS: Glucose 99 mg/dl (74-100)
[2023-12-29 06:51] LABS: Basophils % 0.8 % (0.1-2.0); Eosinophils # 0.2 K/mm3 (0.0-0.4); Eosinophils % 3.7 % (0.1-12.0); Hematocrit 40.7 % (37.0-47.0); Hemoglobin 13.7 g/dL (12.2-16.2); Lymphocytes # 1.2 K/mm3 (0.7-4.5); Lymphocytes % 22.5 % (10-50); Mean Corpuscular HGB Conc 33.6 g/dL (31.8-35.4); Mean Corpuscular Hemoglobin 30.3 pg (27.0-31.2); Mean Corpuscular Volume 90.2 fl (81-99); Mean Platelet Volume 7.5 fl (7.4-10.4); Monocytes # 0.3 K/mm3 (0.1-1.0); Monocytes % 5.2 % (1.7-9.3); Neutrophils # 3.5 K/mm3 (1.8-7.8); Neutrophils % 67.9 % (37.0-80.0); Platelet Count 244 K/mm3 (142-424); Red Blood Count 4.52 M/mm3 (4.20-5.40); Red Cell Distribution Width 13.6 % (11.5-17.5); White Blood Count 5.2 K/mm3 (4.8-10.8)
[2023-12-29 07:58] VITALS: BP 103/68; PULSE 76; RESP 19; TEMP 36.6; O2SAT 96
[2023-12-29] MEDS: LEVOTHYROXINE 150MCG (0.15MG)TAB 150 MCG PO (08:29)
[2023-12-29] MEDS: PANTOPRAZOLE 40MG TABLET 40 MG PO (08:29)
[2023-12-29] MEDS: DICYCLOMINE 10MG CAPSULE 20 MG PO (08:30)
[2023-12-29 09:38] LABS: HCV Ab Non Reactive (Non Reactive)
--- NOTE | 2023-12-29 10:34 | P.DS_ITS ---
General Admission date:: 12/28/23 HPI HPI HPI: 43-year-old female with history of diabetes, fibromyalgia, hypothyroid who presented to the ER with severe worsening abdominal pain this morning. She has been having abdominal pain off and on for several weeks. Became more severe over the past week with increased intensity. Was manageable however until this morning when she woke up and she was doubled over in severe pain, stabbing in character. Unrelenting. On arrival to the ER, difficulty managing her pain and getting it under control. Took multiple doses of Dilaudid, morphine, multimodal therapy. Workup relatively unremarkable with normal labs, lipase normal. Abdominal imaging concerning for significant gas burden. Of note, is on GLP-1 medications. Last bowel movement Thursday. Due to intractable nature of her pain and difficulty to control, medicine consulted for admission for observation and further management Denies shortness of breath, chest pain, fever or chills. Having nausea. No diarrhea. Pain predominantly in the upper abdomen. Only abnormal finding on CT was an adnexal cyst, longstanding. Pain not in her pelvis. Reports pain is worse in the morning when she wakes up. Sometimes worse after she eats. Of note, does not have a gallbladder. Hospital Course Hospital Course Hospital Course: 43-year-old female with diabetes, hypothyroid, intractable abdominal pain. Workup in the ER with normal labs but exam remarkable for severe pain that is difficult to control with IV opiates. Discussed case with ER physician, request admission for observation and pain control. Intractable abdominal pain GLP-1 agonist side effect - Per review of CT abdomen, no bowel obstruction. Benign-appearing pancreas. Significant gas burden in colon. Mild amount of stool, low concern for significant constipation. White count normal at 7.8, hemoglobin 14.5. Electrolytes and kidney function normal with BUN 16, creatinine 0.8. Glucose 115. Lipase unremarkable at 182. Urine with minimal blood. No concern for UTI. ?Clinically improved with multimodal pain regimen with oxycodone, Bentyl, simethicone. ? Abdominal pain most consistent with side effect of GLP-1 agonist. Patient recently had her Trulicity dose increased. ? Tolerating p.o. intake, having bowel movements. ? Counseled patient to hold off on resuming GLP-1 agonist and talk to her PCP about dosing. - Medically stable to be discharged home. Will follow-up with PCP within 1 week. ? Discharged with jory Bradford Compazine. Exam Data for Last 24 hours Vital signs and Labs for Last 24 Hours: Temp Pulse Resp BP Pulse Ox O2 Del Method 97.9 F 76 19 103/68 L 96 Room Air 12/29/23 07:58 12/29/23 07:58 12/29/23 07:58 12/29/23 07:58 12/29/23 07:58 12/29/23 08:00 Laboratory Results - last 24 hr 12/28/23 07:29: Hepatitis C Antibody Non reactive 12/28/23 16:33: POC Glucose 91 12/28/23 19:42: POC Glucose 97 12/29/23 06:15: WBC 5.2 D, RBC 4.52, Hgb 13.7, Hct 40.7, MCV 90.2, MCH 30.3, MCHC 33.6, RDW 13.6, Plt Count 244 D, MPV 7.5, Neut % (Auto) 67.9, Lymph % (Auto) 22.5, [place] % (Auto) 5.2, Eos % (Auto) 3.7, Baso % (Auto) 0.8, Neut # (Auto) 3.5, Lymph # (Auto) 1.2, [place] # (Auto) 0.3, Eos # (Auto) 0.2, Baso # (Auto) 0.0, Sodium 139, Potassium 4.1, Chloride 104, Carbon Dioxide 28, Anion Gap 11.1, BUN 9 D, Creatinine 0.90, Estimated Creat Clear 97, Estimated GFR 69, Est GFR ( Amer) 83, Glucose 99, Calcium 9.0, Total Bilirubin 0.5, AST 131 H D, ALT 169 H D, Alkaline Phosphatase 84, Total Protein 6.5, Albumin 3.9 D, Globulin 2.6, Albumin/Globulin Ratio 1.5, Lipase 84 12/29/23 06:34: POC Glucose 87 I & O for Last 24 hours: Intake & Output 12/26/23 12/27/23 12/28/23 12/29/23 23:59 23:59 23:59 23:59 Intake Total 720 / 900 480 / 480 Output Total 0 / 0 0 / 0 Balance 720 / 900 480 / 480 Weight 75.296 kg 75.478 kg Constitutional Constitutional: no acute distress *Routine HEENT Exam Head: Present normocephalic Eye: Present EOMI and PERRL ENT: Present mucous membranes moist *Routine Neck Exam Neck: Present supple; Absent lymphadenopathy *Routine Respiratory Exam Respiratory: Present CTA bilaterally *Routine Cardiovascular Exam Cardiovascular: Present RRR *Routine Abdominal Exam Abdominal: Present soft and normoactive bowel sounds; Absent tenderness *Routine Extremities Exam Extremities: Absent cyanosis, clubbing or edema *Routine Skin Exam Skin: Present warm; Absent rash *Routine Neurological Exam Neurological: Present alert and oriented X3 Results Data Completed and Pending Labs on day of discharge: Labs from last 24 hours 12/29/23 12/29/23 12/28/23 06:34 06:15 19:42 WBC 5.2 D RBC 4.52 Hgb 13.7 Hct 40.7 MCV 90.2 MCH 30.3 MCHC 33.6 RDW 13.6 Plt Count 244 D MPV 7.5 Neut % (Auto) 67.9 Lymph % (Auto) 22.5 [place] % (Auto) 5.2 Eos % (Auto) 3.7 Baso % (Auto) 0.8 Neut # (Auto) 3.5 Lymph # (Auto) 1.2 [place] # (Auto) 0.3 Eos # (Auto) 0.2 Baso # (Auto) 0.0 Sodium 139 Potassium 4.1 Chloride 104 Carbon Dioxide 28 Anion Gap 11.1 BUN 9 D Creatinine 0.90 Estimated Creat Clear 97 Estimated GFR 69 Est GFR ( Amer) 83 Glucose 99 POC Glucose 87 97 Calcium 9.0 Total Bilirubin 0.5 AST 131 H D ALT 169 H D Alkaline Phosphatase 84 Total Protein 6.5 Albumin 3.9 D Globulin 2.6 Albumin/Globulin Ratio 1.5 Lipase 84 Hepatitis C Antibody 12/28/23 12/28/23 16:33 07:29 WBC RBC Hgb Hct MCV MCH MCHC RDW Plt Count MPV Neut % (Auto) Lymph % (Auto) [place] % (Auto) Eos % (Auto) Baso % (Auto) Neut # (Auto) Lymph # (Auto) [place] # (Auto) Eos # (Auto) Baso # (Auto) Sodium Potassium Chloride Carbon Dioxide Anion Gap BUN Creatinine Estimated Creat Clear Estimated GFR Est GFR ( Amer) Glucose POC Glucose 91 Calcium Total Bilirubin AST ALT Alkaline Phosphatase Total Protein Albumin Globulin Albumin/Globulin Ratio Lipase Hepatitis C Antibody Non reactive DS: Diagnosis Discharge Diagnosis (1) Intractable abdominal pain: Status: Resolved Code(s): R10.9 - Unspecified abdominal pain (2) Hypothyroidism: Status: Chronic Code(s): E03.9 - Hypothyroidism, unspecified Qualifiers: Hypothyroidism type: acquired Qualified Code(s): E03.9 - Hypothyroidism, unspecified (3) Diabetes 1.5, managed as type 2: Status: Chronic Code(s): E13.9 - Other specified diabetes mellitus without complications Problem details: On Trulicity (4) Hyperlipemia: Status: Chronic Code(s): E78.5 - Hyperlipidemia, unspecified Qualifiers: Hyperlipidemia type: unspecified Qualified Code(s): E78.5 - Hyperlipidemia, unspecified Meds Home Medications and Allergies Home Medications ?Medication ?Instructions ?Recorded ?Confirmed ?Type atogepant 60 mg tablet (Qulipta) 60 mg PO DAILY 04/12/21 12/28/23 History levonorgestrel 21 mcg/24 hr (up to 1 device intrauterine DIRECTED 04/12/21 12/28/23 History 8 years) 52 mg intrauterine device (Mirena) propranolol 20 mg tablet 20 mg PO BID 04/12/21 12/28/23 History fluoxetine 40 mg capsule (Prozac) 40 mg PO DAILY 09/11/22 12/28/23 History levothyroxine 150 mcg tablet 150 mcg PO DAILY 12/21/23 12/28/23 History (Synthroid) omeprazole 40 mg capsule,delayed 40 mg PO BID 30 days #60 caps 12/21/23 12/28/23 History release tizanidine 2 mg tablet 2 - 4 mg PO BIDP PRN Muscle Spasm 12/21/23 12/28/23 History vibegron 75 mg tablet (Gemtesa) 75 mg PO DAILY 12/21/23 12/28/23 History metformin 500 mg tablet,extended 1,000 mg PO DAILY 12/28/23 12/28/23 History release 24 hr rosuvastatin 20 mg tablet 20 mg PO DAILY 12/28/23 12/28/23 History dicyclomine 10 mg capsule 20 mg (2 x 10 mg) PO QID PRN 12/29/23 Rx Abdominal Discomfort 14 days #30 caps prochlorperazine maleate 10 mg 10 mg PO QID PRN nausea and 12/29/23 Rx tablet (Compazine) vomiting #14 tabs simethicone 80 mg chewable tablet 160 mg (2 x 80 mg) PO Q6HP PRN Gas 12/29/23 Rx (Gas Relief 80 (simethicone)) Pain And Discomfort 14 days #30 tabs New Prescriptions to Start Prescriptions: dicyclomine Shorty Kay prochlorperazine maleate [Compazine] Shorty Kay simethicone [Gas Relief 80 (simethicone)] Shorty Kay Allergies Allergy/AdvReac Type Severity Reaction Status Date / Time promethazine [PROMETHAZINE] Allergy Unknown Verified 12/21/23 15:47 Discharge Plan Disposition Patient Disposition: Home, Self-Care Condition: Fair Follow up Plan Follow up with: Diony Liang MD [Primary Care Provider] - 01/04/24 3:15 pm Prescriptions/Medication Reconciliation: New dicyclomine 10 mg Capsule 20 mg PO QID PRN (Reason: Abdominal Discomfort) 14 Days Qty: 30 0RF simethicone [Gas Relief 80 (simethicone)] 80 mg Tablet,Chewable 160 mg PO Q6HP PRN (Reason: Gas Pain And Discomfort) 14 Days Qty: 30 0RF prochlorperazine maleate [Compazine] 10 mg tablet 10 mg PO QID PRN (Reason: nausea and vomiting) Qty: 14 0RF Continued fluoxetine [Prozac] 40 mg capsule 40 mg PO DAILY propranolol 20 mg tablet 20 mg PO BID Mirena 20 mcg/24 hours (7 yrs) 52 mg intrauterine device 1 device INTRAUTERI DIRECTED Qulipta 60 mg tablet 60 mg PO DAILY levothyroxine [Synthroid] 150 mcg tablet 150 mcg PO DAILY Patient Comments: TAKE ONE TABLET BY MOUTH EVERY DAY Gemtesa 75 mg tablet 75 mg PO DAILY tizanidine 2 mg tablet 2 - 4 mg PO BIDP PRN (Reason: Muscle Spasm) Patient Comments: TAKE 1 TO 2 TABLET(S) BY MOUTH TWICE DAILY NEEDED MAY CAUSE DROWSINESS omeprazole 40 mg capsule,delayed release(DR/EC) 40 mg PO BID 30 Days Qty: 60 Patient Comments: metformin 500 mg tablet extended release 24 hr 1,000 mg PO DAILY Patient Comments: TAKE TWO TABLETS BY MOUTH EVERY DAY rosuvastatin 20 mg tablet 20 mg PO DAILY Patient Comments: TAKE ONE TABLET BY MOUTH EVERY DAY Discontinued Trulicity 0.75 mg/0.5 mL pen injector 4.5 mg SQ WEEKLY Problem Reconciliation Problems Reviewed?: Yes Patient Discharge Instructions Patient Instructions: DI for Ovarian Cyst Print Language: Cameroonian Providers Primary Care Provider: Diony Liang Provider: Roni Leung Attending Provider: Roni Leung
[2023-12-29 11:22] LABS: POC Glucose,Bedside 121 (70-110)
== END 2023-12-29 12:02 | disposition home or self-care (01) ==
LOC: ER 07:38 → 2ND 13:49
PROVIDERS: Admitting Provider Internal Medicine Adolescent Medicine; Emergency Provider Student in an Organized Health Care Education/Training Program; PCP Internal Medicine Adolescent Medicine; Visit Provider Internal Medicine Adolescent Medicine
DX: R10.9 Unspecified abdominal pain (principal); E03.9 Hypothyroidism, unspecified; E11.9 Type 2 diabetes mellitus without complications; E78.5 Hyperlipidemia, unspecified; Z79.84 Long term (current) use of oral hypoglycemic drugs; Z79.899 Other long term (current) drug therapy; T38.3X5A Adverse effect of insulin and oral hypoglycemic [antidiabetic] drugs, initial encounter
CPT/HCPCS: 36415; 71275; 74174; 76830; 76856; 80053; 81001; 82962; 83605; 83690; 84484; 84703; 85025; 86803; 87389; 93005; 99291; G0378; J0780; J1171; J1200; J1885; J2270; J2405; J3010; Q9967

== ENCOUNTER 2024-01-04 07:08 | Outpatient (CLI) | payer OTHER, SELFPAY ==
[2024-01-04 07:39] LABS: Basophils # 0.1 K/mm3 (0-0.2); Basophils % 0.8 % (0.1-2.0); Eosinophils # 0.3 K/mm3 (0.0-0.4); Hematocrit 40.1 % (37.0-47.0); Hemoglobin 13.8 g/dL (12.2-16.2); Lymphocytes # 1.5 K/mm3 (0.7-4.5); Lymphocytes % 22.8 % (10-50); Mean Corpuscular HGB Conc 34.4 g/dL (31.8-35.4); Mean Corpuscular Hemoglobin 30.9 pg (27.0-31.2); Mean Platelet Volume 7.6 fl (7.4-10.4); Monocytes # 0.3 K/mm3 (0.1-1.0); Monocytes % 5.2 % (1.7-9.3); Neutrophils # 4.3 K/mm3 (1.8-7.8); Neutrophils % 67.2 % (37.0-80.0); Platelet Count 307 K/mm3 (142-424); Red Blood Count 4.45 M/mm3 (4.20-5.40); Red Cell Distribution Width 13.8 % (11.5-17.5); White Blood Count 6.3 K/mm3 (4.8-10.8)
[2024-01-04 08:33] LABS: Albumin Level 4.1 g/dl (3.5-5.0); Albumin/Globulin Ratio 1.8 (1.1-1.8); Amylase 59 U/L (30-110); Blood Urea Nitrogen 10 mg/dl (7-17); Calcium 9.3 mg/dl (8.4-10.2); Carbon Dioxide 22 mmol/L (22.0-30.0); Estimated Glomerular Filt Rate 92 ml/min (>60); GFR (African American) 111 ML/MIN (>60); Globulin 2.3 g/dL (1.3-3.2); Glucose 92 mg/dl (74-100); Lipase 231 U/L (23-300); Total Protein,Serum 6.4 g/dl (6.3-8.2)
[2024-01-04 08:35] LABS: Alanine Aminotransferase 31 U/L (12-78); Alkaline Phosphatase 67 U/L (38-126); Aspartate Amino Transferase 25 U/L (14-36); Bilirubin,Total 0.5 mg/dl (0.2-1.3); Potassium 4.7 mmoL/L (3.5-5.1); Sodium 134 mmol/L (136-145)
[2024-01-04 08:54] LABS: Anion Gap 9.7 mEq/L (5-15); Chloride 107 mmol/L (98-107)
== END 2024-01-04 23:59 | disposition home or self-care (01) ==
LOC: LAB 07:11
PROVIDERS: PCP Internal Medicine Adolescent Medicine; Visit Provider Internal Medicine Adolescent Medicine
DX: R10.84 Generalized abdominal pain (principal)
CPT/HCPCS: 36415; 80053; 82150; 83690; 85025

== ENCOUNTER 2024-02-02 07:03 | Outpatient (CLI) | payer OTHER, SELFPAY ==
[2024-02-02 07:21] LABS: Basophils # 0.1 K/mm3 (0-0.2); Eosinophils # 0.2 K/mm3 (0.0-0.4); Eosinophils % 3.7 % (0.1-12.0); Hematocrit 40.8 % (37.0-47.0); Hemoglobin 14.1 g/dL (12.2-16.2); Lymphocytes # 1.4 K/mm3 (0.7-4.5); Lymphocytes % 21.1 % (10-50); Mean Corpuscular HGB Conc 34.7 g/dL (31.8-35.4); Mean Corpuscular Volume 89.5 fl (81-99); Monocytes # 0.3 K/mm3 (0.1-1.0); Monocytes % 4.4 % (1.7-9.3); Neutrophils # 4.5 K/mm3 (1.8-7.8); Neutrophils % 69.8 % (37.0-80.0); Platelet Count 288 K/mm3 (142-424); Red Blood Count 4.56 M/mm3 (4.20-5.40); Red Cell Distribution Width 13.8 % (11.5-17.5); White Blood Count 6.5 K/mm3 (4.8-10.8)
[2024-02-02 08:05] LABS: Hemoglobin A1C 5.1 % (4.0-6.0)
[2024-02-02 08:49] LABS: Alanine Aminotransferase 26 U/L (12-78); Albumin Level 4.2 g/dl (3.5-5.0); Albumin/Globulin Ratio 1.8 (1.1-1.8); Alkaline Phosphatase 72 U/L (38-126); Amylase 59 U/L (30-110); Anion Gap 15.6 mEq/L (5-15); Aspartate Amino Transferase 25 U/L (14-36); Bilirubin,Total 0.5 mg/dl (0.2-1.3); Blood Urea Nitrogen 16 mg/dl (7-17); Calcium 9.7 mg/dl (8.4-10.2); Carbon Dioxide 22 mmol/L (22.0-30.0); Chloride 106 mmol/L (98-107); Estimated Glomerular Filt Rate 92 ml/min (>60); GFR (African American) 111 ML/MIN (>60); Globulin 2.3 g/dL (1.3-3.2); Glucose 108 mg/dl (74-100); Lipase 100 U/L (23-300); Potassium 4.6 mmoL/L (3.5-5.1); Sodium 139 mmol/L (136-145); Total Protein,Serum 6.5 g/dl (6.3-8.2)
[2024-02-02 09:06] LABS: Free Thyroxine Index 3.1 ug/dL (5.93-13.13); T4 (Thyroxine) 9.8 ug/dl (5.53-11.0); Triiodothryronine (T3) Uptake 32 % (23.5-40.5)
[2024-02-02 09:20] LABS: Thyroid Stimulating Hormone < 0.02 uIU/mL (0.465-4.68)
== END 2024-02-02 23:59 | disposition home or self-care (01) ==
LOC: LAB 07:04
PROVIDERS: PCP Internal Medicine Adolescent Medicine; Visit Provider Internal Medicine Adolescent Medicine
DX: R10.84 Generalized abdominal pain (principal); E03.9 Hypothyroidism, unspecified; E11.9 Type 2 diabetes mellitus without complications; Z79.84 Long term (current) use of oral hypoglycemic drugs
CPT/HCPCS: 36415; 80050; 80053; 82150; 83036; 83690; 84436; 84443; 84479; 85025

== ENCOUNTER 2024-04-11 15:59 | Outpatient (CLI) | payer OTHER, SELFPAY ==
--- NOTE | 2024-04-11 15:59 | MM_ITS ---
PROCEDURE INFORMATION: Exam: MG Bilateral Screening 3D Mammography Exam date and time: 04/11/2024 4:02 PM Age: 44 years old Clinical indication: Screening examination TECHNIQUE: Imaging protocol: Bilateral Screening tomosynthesis and 2D mammography including computer-aided detection (CAD) when performed. COMPARISON: MG MM DIG SCREENING MAMM BI W/CAD 03/19/2023 4:43 PM FINDINGS: MAMMOGRAPHY: Breast composition: The breasts are heterogeneously dense, which may obscure small masses. Mass: Questionable 0.7 cm mass seen on tomographic images in the posterior right lower inner quadrant Architectural distortion: None. Calcifications: No suspicious calcifications. Asymmetric density: None. Skin thickening: None. Axillary adenopathy: None. IMPRESSION: Patient to be recalled for spot compression views of the right breast in the CC and MLO projections, a full 90 degree lateral view, and right breast ultrasound for further evaluation of a right breast mass. ASSESSMENT: BI-RADS Category 0: Incomplete- Need Additional Imaging Evaluation
== END 2024-04-11 23:59 | disposition home or self-care (01) ==
LOC: RAD 15:59
PROVIDERS: PCP Internal Medicine Adolescent Medicine; Visit Provider Nurse Practitioner Obstetrics & Gynecology
DX: Z12.31 Encounter for screening mammogram for malignant neoplasm of breast (principal)
CPT/HCPCS: 77063; 77067

== ENCOUNTER 2024-04-22 13:59 | Outpatient (CLI) | payer OTHER, SELFPAY ==
--- NOTE | 2024-04-22 14:00 | MM_ITS ---
PROCEDURE INFORMATION: Exam: US Right Breast, Complete MG Right Diagnostic Breast Tomosynthesis Exam date and time: 04/22/2024 2:27 PM Age: 44 years old Clinical indication: Recall on the basis of screening mammogram 04/11/2024 for further evaluation of questionable 0.7 cm mass seen on tomographic images in the posterior right lower inner quadrant. TECHNIQUE: Imaging protocol: Complete ultrasound of all four quadrants of the right breast and the retroareolar regions, including ultrasound of the axilla when performed. Right Diagnostic tomosynthesis and 2D mammography including computer-aided detection (CAD) when performed. Unilateral or bilateral exam. COMPARISON: MG MM DIG MAMM DX UNILAT RT CAD 04/22/2024 2:10 PM FINDINGS: MAMMOGRAPHY: Breast composition: The breast is heterogeneously dense, which may obscure small masses based on the most recent screening mammogram report. Breast mammogram findings: Spot compression shows that the questioned mass mostly effaces in the MLO projection and completely in the CC projection with no suspicious mass or asymmetry. ULTRASOUND: Breast ultrasound findings: Right ultrasound, all 4 quadrants, retroareolar and axilla demonstrate no sonographic findings. Sonographically unremarkable axillary lymph node. IMPRESSION: Screening recall question mass mostly effaces on mammography with no sonographic correlate, probably benign, suggest six-month follow-up right diagnostic mammogram unless otherwise clinically indicated. ASSESSMENT: BI-RADS Category 3: Probably benign.
== END 2024-04-22 23:59 | disposition home or self-care (01) ==
LOC: RAD 14:00
PROVIDERS: PCP Internal Medicine Adolescent Medicine; Visit Provider Nurse Practitioner Obstetrics & Gynecology
DX: R92.8 Other abnormal and inconclusive findings on diagnostic imaging of breast (principal); N63.14 Unspecified lump in the right breast, lower inner quadrant
CPT/HCPCS: 76641; 77061; 77065; G0279

== ENCOUNTER 2024-05-27 16:05 | Outpatient (CLI) | payer OTHER, SELFPAY ==
--- NOTE | 2024-05-27 16:09 | XR_ITS ---
PROCEDURE INFORMATION: Exam: XR Lumbosacral Spine Exam date and time: 05/27/2024 4:11 PM Age: 44 years old Clinical indication: Low back pain TECHNIQUE: Imaging protocol: Radiologic exam of the lumbosacral spine. Views: 4 or 5 views. Total images: 5 COMPARISON: CT ANGIO ABDOMEN PELVIS 12/28/2023 9:19 AM FINDINGS: Bones/joints: Normal. No acute fracture. Normal alignment. Soft tissues: Unremarkable. IMPRESSION: No acute findings.
--- NOTE | 2024-05-27 16:09 | XR_ITS ---
PROCEDURE INFORMATION: Exam: XR Bilateral Sacroiliac Joints Exam date and time: 05/27/2024 4:11 PM Age: 44 years old Clinical indication: Pain; Lumbago; With sciatica; Additional info: Sacroilitis TECHNIQUE: Imaging protocol: XR bilateral XR of the sacroiliac joints. Views: 3 or more views. Total images: 3 COMPARISON: XR SACROILIAC JOINT BI MIN 3V 05/27/2024 4:11 PM FINDINGS: Bones/joints: SI joints are intact bilaterally. No evidence of acute fracture. No evidence of sacroiliitis. Soft tissues: Normal. Organs: An intrauterine device is present. IMPRESSION: 1. SI joints are intact bilaterally. 2. No evidence of acute fracture. 3. No evidence of sacroiliitis.
== END 2024-05-27 23:59 | disposition home or self-care (01) ==
LOC: RAD 16:06
PROVIDERS: PCP Internal Medicine Adolescent Medicine; Visit Provider Internal Medicine Adolescent Medicine
DX: M46.1 Sacroiliitis, not elsewhere classified (principal)
CPT/HCPCS: 72110; 72202

== ENCOUNTER 2024-09-08 07:03 | Outpatient (CLI) | payer OTHER, SELFPAY ==
--- OUTSIDE RECORDS SUMMARY | 2024-09-08 07:05 | XMS_ITS | Clinical Summary ---
Author Organization [facility] Address [address] [place] [address] Phone Care Team Providers Care Production Line Welder Name Role Phone Berto Christian MD Unavailable [phone] Allergies Active Allergy Reactions Criticality Noted Date Comments Promethazine Nausea And Vomiting 09/11/2022 Medications FLUoxetine (PROZAC) 40 mg Oral Capsule Take 40 mg by mouth daily. Active SYNTHROID 200 mcg Oral Tablet Take 200 mcg by mouth daily. Active Cholecalcifero l, Vitamin D3, 25 mcg (1,000 unit) Oral Capsule 1,000 Units. 8 Active omeprazole (PRILOSEC) 40 mg Oral Capsule, Delayed Release(E.C.) Take 40 mg by mouth 2 times daily. Active b complex vitamins Oral Tablet 1 Tablet. 9 Active propranoloL (INDERAL) 20 mg Oral Tablet Take 20 mg by mouth 2 times daily. Active QULIPTA 60 mg Oral Tablet Take 1 Tablet by mouth daily. Active metFORMIN (GLUCOPHAGE) 1,000 mg Oral Tablet 1,000 mg. 3 Active rosuvastatin (CRESTOR) 20 mg Oral Tablet Take 20 mg by mouth daily. 3 Active TRULICITY 3 mg/0.5 mL SubQ Pen Injector INJECT THE CONTENTS OF 1 PEN (3 MG / 0.5 ML) SUBCUTANEOUSLY ONCE A WEEK 3 Active tiZANidine (ZANAFLEX) 2 mg Oral Tablet 3 Active levonorgestreL (MIRENA) 21 mcg/24 hours (8 yrs) 52 mg IU IUD 2 Active oxybutynin (DITROPAN-XL) 10 mg Oral Tablet Extended Rel 24 hrIndications: OAB (overactive bladder) Take 1 Tablet by mouth daily. 30 Tablet 5 3 Active GEMTESA 75 mg Oral TabletIndicati ons:OAB (overactive bladder) TAKE ONE TABLET BY MOUTH EVERY DAY 30 Tablet 5 4 Active Active Problems Problem Noted Date Diagnosed Date Stress incontinence in female 01/27/2023 Urge incontinence of urine 01/27/2023 Surgical History Surgery Date Site/Laterality Comments CHOLECYSTECTOMY ANTERIOR CRUCIATE LIGAMENT REPAIR DENTAL SURGERY [place] teeth extraction Medical History Medical History Date Comments Graves disease Hypothyroidism Fibromyalgia Type 2 diabetes mellitus without complications ( HCC) Social History Tobacco Use Types Packs/Day Years Used Date Smoking Tobacco: Never Smokeless Tobacco: Never Tobacco Cessation:Counseling Given: Not Answered Comments Unknown Sex and Gender Information Value Date Recorded Sex Assigned at Not on file Legal Sex Female 11:34 AM EDT Gender Identity Not on file Sexual Orientation Not on file Obstetrics History Para Term AB IAB SAB Ectopic Multiple Livin g Live Births 3 2 2 1 1 2 2 Date Outcome GA Total Labor Labor//3rd Weight Sex Type Anes PTL Loren A1 A5 Name Clin Term Term SAB Last Filed Vital Signs Vital Sign Reading Time Taken Comments Blood Pressure 108/64 01/27/2023 10:34 AM EST Pulse 85 01/27/2023 10:34 AM EST Temperature - - Respiratory Rate - - Oxygen Saturation 99% 01/27/2023 10:34 AM EST Inhaled Oxygen Concentration - - Weight 69.9 kg (154 lb) 01/27/2023 10:34 AM EST Height - - Body Mass Index - - Plan of Treatment Health Maintenance Due Date Last Done Comments Annual Wellness Exam 1984 DTaP/TDaP/Td (1 - Tdap) 2000 Hepatitis B Vaccine (1 of 3 - 19+ 3-dose series) 2000 Cervical Cancer Screening 2002 Pap Smear 2002 HPV/Pap Cotest 2011 Breast Cancer Screening 2021 COVID-19 Vaccine (2023-2 5 season) 2023 01/01/2021, 03/30/2020, 02/29/2020 Influenza Vaccine (#1) 2024 9, 12/10/2017 Meningococcal B Vaccine Aged Out No l onger eligible based on patient's age to complete this topic Pneumococcal Vaccine 0-49 Aged Out No longer eligible based on patient's age to complete this topic Insurance Care Teams Production Line Welder Relationship Specialty Start Date End Date Berto Christian MD [address] [facility] [address] [place] [id number] Obstetrics & Gynecology-Gynecology 01/27/23
[2024-09-08 07:15] LABS: Hematocrit 31.9 % (37.0-47.0); Hemoglobin 10.6 g/dL (12.2-16.2); Immature Granulocytes % 0.2 %; Mean Corpuscular HGB Conc 33.2 g/dL (31.8-35.4); Mean Corpuscular Hemoglobin 29.7 pg (27.0-31.2); Mean Corpuscular Volume 89.4 fl (81-99); Nucleated Red Blood Cells % 0 %; Platelet Count 257 K/mm3 (142-424); Red Blood Count 3.57 M/mm3 (4.20-5.40); Red Cell Distribution Width-SD 43.8 fL; White Blood Count 5.4 K/mm3 (4.8-10.8)
[2024-09-08 08:20] LABS: Alanine Aminotransferase 15 U/L (12-78); Albumin Level 3.8 g/dl (3.5-5.0); Albumin/Globulin Ratio 1.6 (1.1-1.8); Alkaline Phosphatase 65 U/L (38-126); Anion Gap 13.8 mEq/L (5-15); Aspartate Amino Transferase 19 U/L (14-36); Bilirubin,Total 0.2 mg/dl (0.2-1.3); Blood Urea Nitrogen 16 mg/dl (7-17); Calcium 9.1 mg/dl (8.4-10.2); Carbon Dioxide 25 mmol/L (22.0-30.0); Chloride 106 mmol/L (98-107); Cholesterol 153 mg/dl (140-200); Creatinine,Serum 0.70 mg/dl (0.52-1.04); Estimated Glomerular Filt Rate 91 ml/min (>60); GFR (African American) 111 ML/MIN (>60); Globulin 2.4 g/dL (1.3-3.2); Glucose 115 mg/dl (74-100); HDL Cholesterol 44 mg/dl (40-60); Potassium 4.8 mmoL/L (3.5-5.1); Sodium 140 mmol/L (136-145); Total Protein,Serum 6.2 g/dl (6.3-8.2); Triglycerides 122 mg/dl (30-150)
[2024-09-08 08:28] LABS: NT Pro Brain Natriuretic Pep. 84.3 pg/mL (0-125)
[2024-09-08 08:36] LABS: Free Thyroxine Index 3.0 ug/dL (5.93-13.13); T4 (Thyroxine) 9.0 ug/dl (5.53-11.0); Triiodothryronine (T3) Uptake 33 % (23.5-40.5)
[2024-09-08 08:49] LABS: Thyroid Stimulating Hormone 0.06 uIU/mL (0.465-4.68)
[2024-09-08 09:29] LABS: Hemoglobin A1C 6.1 % (4.0-6.0)
== END 2024-09-08 23:59 | disposition home or self-care (01) ==
LOC: LAB 07:03
PROVIDERS: PCP Internal Medicine Adolescent Medicine; Visit Provider Internal Medicine Adolescent Medicine
DX: E11.9 Type 2 diabetes mellitus without complications (principal); R06.09 Other forms of dyspnea
CPT/HCPCS: 36415; 80053; 80061; 83036; 83880; 84436; 84443; 84479; 85025

== ENCOUNTER 2024-11-09 14:14 | Outpatient (CLI) | payer OTHER, SELFPAY ==
--- OUTSIDE RECORDS SUMMARY | 2024-11-09 14:18 | XMS_ITS | Patient Health Record ---
Author Organization [facility] Address [address] [facility] [address] [place] [id number] Care Team Providers Care Office Aide Name Role Phone Abner Gupta Primary Care Provider [phone] Allergies Allergen (clinical drug ingredient) Drug/Non Drug Allergy documented on EMR Reaction Allergy Type Onset Date Status promethazine Promethazine vomit Drug Allergy A ctive Reason For Referral No Information Medications Medication SIG (Take, Route, Frequency, Duration) Notes Start Date End Date Status tiZANidine HCl 2 MG 1-2 tab orally bid, prn; Duration: 30 day(s) 01/25/2020 Active Losartan Potassium 50 MG 1 tab(s) orally once a day; Duration: 30 Active Vitamin D3 50 MCG (2000 UT) 1 cap(s) orally once a day 08/08/2016 Active B-12 1000 MCG 1 tab(s) orally once a day; Duration: 30 day(s) 04/07/2018 Active Multivitamin 1 TAB ONCE A DAY *Please review and pick correct strength-formulatio n from Medispan options. If intended option is not shown, discontinue and re-order from Quick Search* Active Zithromax Z-Yomi 250 MG 2 tablets on the first day, then 1 tablet daily for 4 days orally once a day 06/12/2020 Active Nystatin 594049 UNIT/GM 1 stephen applied topically 3 times a day 11/04/2019 Active Omeprazole 40 MG 1 cap(s) orally once a day; Duration: 90 Active PROzac 40 MG 1 cap(s) orally once a day; Duration: 90 Active Asgakqkii-Etjyozls-YT 30-2-10 MG/5ML 5 mL orally 4 times a day as needed for cough 05/28/2020 Active predniSONE 20 MG 1 tab orally BID x 5 days then daily x 5 days; Duration: 10 days 06/12/2020 Active Albuterol Sulfate HFA 108 (90 Base) MCG/ACT 2 puff(s) inhaled every 6 hours and prn SOB or wheezing 05/30/2020 Active Benzonatate 200 MG 1 cap(s) orally 3 times a day as needed for cough 05/30/2020 Active Synthroid 150 MCG 1 tab(s) orally once a day; Duration: 90 Active Immunizations Vaccine Route Administration Date Status Comme nts COVID 19 Moderna Unknown 02/29/2020 Administered COVID 19 Moderna Unknown 03/30/2020 Administered Fluzone Quad (6months&older) IM Intramuscular 12/08/2014 Administered Fluzone Quad (6months&older) IM Intramuscular 12/10/2017 Administered Fluzone Quad (6months&older) IM Intramuscular 12/04/2018 Administered xFluzone Intradermal (18-64yrs)-trivalent ID Intradermal 12/13/2012 Administered Problems Problem Type SNOMED Code ICD Code Onset Dates Problem Status W/U Status Risk Notes Problem Vitamin D deficiency (68830711) Vitamin D deficiency (E55.9) Active confirmed Problem Essential hypertension (60595998) Essential hypertension (I10) Active confirmed Problem Mixed anxiety and depressive disorder (222523760) Depression with anxiety (F41.8) Active confirmed Problem Fibromyalgia (534410871) Fibromyalgia (M79.7) Active confirmed Problem Acquired hypothyroidism (339486341) Acquired hypothyroidism (E03.9) Active confirmed Problem Gastroesophageal reflux disease with esophagitis (335053031) Gastroesophageal reflux disease with esophagitis (K21.0) Active confirmed Problem Carpal tunnel syndrome of right wrist (138057115353001) Carpal tunnel syndrome of right wrist (G56.01) Active confirmed Problem Dysphagia (06246194) Dysphagia, unspecified type (R13.10) Active confirmed Problem Hypersomnia (29834316) Hypersomnia (G47.10) Active confirmed Problem Obese class I (finding) (310536668514078) Obesity (BMI 30.0-34.9) (E66.9) Active confirmed Plan Of Treatment Pending Test Test Name Order Date CBC 06/12/2020 COVID 19 nasal-PCR (SARS CoV-2) 06/13/19 21 Insurance Providers Payer Name Payer Address Payer Phone Subscriber Number Group Number Insured Name Patient Relationship to Insured Coverage Start Date Coverage End Date [facility] [address] [address] [place] [address] [id number] Shelby Arriaga Self - patient is the insured Medications Administered Medication Instructions Date of Administration Dosage Notes Dexamethasone 12/30/2012 1 mL Dexamethasone 08/15/2015 1 mL Dexamethasone 08/20/2018 1 mL Medical (General) History Medical History History ICD Code Hypothyroid Graves Disease - s/p radioactive iodine treatment at age 9 Carpel Tunnel fibromyalgia Followed by Pat [facility] Surgical History Surgery Date(Month/Year) ACL-left reconstruction gallbladder removed wisdom teeth removed L shoulder/labrum repair- Dr Hebert 2019 Hospitalization History Reason Date(Month/Year) see above Trachyitis-[facility]-possible Bronchitis 01/14
--- OUTSIDE RECORDS SUMMARY | 2024-11-09 14:18 | XMS_ITS | Clinical Summary ---
Author Organization [facility] Address [address] [place] [address] Phone Care Team Providers Care Overhauler Bus Truck Name Role Phone Berto Christian MD Unavailable [phone] Allergies Active Allergy Reactions Criticality Noted [...] CHOLECYSTECTOMY ANTERIOR CRUCIATE LIGAMENT REPAIR DENTAL SURGERY [place] teeth extraction Medical History Medical History Date [...] 2011 Breast Cancer Screening 2021 COVID-19 Vaccine (2024-2 6 season) 2024 01/01/2021, 03/30/2020, 02/29/2020 Influenza Vaccine (#1) 2024 9, 12/10/2017 Meningococcal B Vaccine Aged Out No l onger eligible based on patient's age to complete this topic Pneumococcal Vaccine 0-49 Aged Out No longer eligible based on patient's age to complete this topic Insurance Care Teams Overhauler Bus Truck Relationship Specialty Start Date End Date Berto Christian MD [address] [facility] [address] [place] [phone] Obstetrics & Gynecology-Gynecology 01/27/23
--- NOTE | 2024-11-09 14:30 | MM_ITS ---
PROCEDURE INFORMATION: Exam: Right Diagnostic Breast Tomosynthesis Radiologist Consultation Exam date and time: 11/09/2024 2:33 PM Age: 44 years old Clinical indication: Short-term radiographic followup; Right breast; Additional info: 6 month f/u TECHNIQUE: Imaging protocol: Right Diagnostic tomosynthesis and 2D mammography including computer-aided detection (CAD) when performed. Unilateral or bilateral exam. COMPARISON: MM DIG MAMM DX UNILAT RT CAD 04/22/2024 2:10 PM FINDINGS: MAMMOGRAPHY: Breast composition: There are scattered areas of fibroglandular density. Breast mammogram findings: No stellate mass, architectural distortion, or suspicious microcalcifications to suggest malignancy. No skin thickening or axillary adenopathy. No persistent mass when compared with the prior studies. IMPRESSION: 1. No mammographic evidence of malignancy. 2. Annual bilateral mammographic screening is recommended unless otherwise clinically indicated. ASSESSMENT: BI-RADS Category 1: Negative.
== END 2024-11-09 23:59 | disposition home or self-care (01) ==
LOC: RAD 14:15
PROVIDERS: PCP Internal Medicine Adolescent Medicine; Visit Provider Nurse Practitioner Obstetrics & Gynecology
DX: R92.321 Mammographic fibroglandular density, right breast (principal)
CPT/HCPCS: 77061; 77065; G0279